=== PATIENT | male | born 1930 | race Caucasian/White ===

== ENCOUNTER 2019-06-03 12:31 | Emergency (ER) | payer OTHER ==
[~2019-06-03] VITALS: Ht 172.7 cm; Wt 65.8 kg
[~2019-06-03 12:31] MED LIST: ASPI-231 OR; ATOR10TA OR; CILO100T OR; DUTACAP OR; FERR324T4 OR; FLUT250M2 IN; GLIP5TAB12 OR; MULTTAB OR; OMEG10004 OR; OMEP20TA44 OR; SITA50TA OR; TIOTCAP IN; [UNRECOGNIZED DRUG - CODE] XX
[2019-06-03 12:56] VITALS: BP 110/63
[2019-06-03] MEDS ORDERED: HYDROcodone-ACET 5/325MG TAB PO ONE (13:45)
== END 2019-06-03 15:48 | disposition home or self-care (01) ==
LOC: ER 12:31
DX: S42.212A Unspecified displaced fracture of surgical neck of left humerus, initial encounter for closed fracture (principal); Z79.82 Long term (current) use of aspirin; Z79.899 Other long term (current) drug therapy; W19.XXXA Unspecified fall, initial encounter; Y93.89 Activity, other specified; Y92.89 Other specified places as the place of occurrence of the external cause; Y99.8 Other external cause status
CPT/HCPCS: 71045; 73030

== ENCOUNTER 2019-06-28 15:07 | Inpatient (IN) | payer OTHER ==
[~2019-06-28] VITALS: Ht 175.3 cm; Wt 64.4 kg
[~2019-06-28 15:07] MED LIST changes: +MULT-733 OR; -MULTTAB OR
[2019-06-28] MEDS ORDERED: SODIUM CHLORIDE 0.9% 1,000 ML IV ONE ×5 (15:21→19:15)
[2019-06-28 15:42] LABS: Basophils # (auto) 0 10 ^3/uL (0-0.2); Basophils % (auto) 0.2 % (0.0-2.0); Eosinophils # (auto) 0 10 ^3/uL (0-0.8)
[2019-06-28 15:44] LABS: Hemoglobin 10.2 g/dL (13.5-17.5); Lymphocytes # (auto) 0.3 10 ^3/uL (0.4-5.4); Monocytes % (auto) 6.1 % (0.0-12.0); Neutrophils # (auto) 14.5 10 ^3/uL (1.6-8.6); Neutrophils % (auto) 91.7 % (37.0-80.0); Platelet Count (auto) 111 10^3/uL (140-450); Red Blood Cells 2.83 10^6/uL (4.5-5.90); Red Cell Distribution Width 16.3 % (11.8-14.3); White Blood Cell 15.8 10^3/uL (4.4-10.8)
[2019-06-28 15:45] LABS: Albumin 2.4 g/dL (3.4-5.0); Calcium 8.6 mg/dL (8.5-10.1); Potassium 5.3 mmol/L (3.5-5.1)
[2019-06-28 15:50] LABS: BUN/Creatinine Ratio 22.8; Bilirubin, Total 1.1 mg/dL (0.2-1.0); Total Protein 7.3 g/dL (6.4-8.2)
[2019-06-28 15:59] LABS: INR 1.05 (0.9-1.15); Lactic Acid w/Reflex 3.3 mmol/L (0.4-2.0); Partial Thromboplastin Time 31.9 sec (23.64-32.05)
[2019-06-28] MEDS ORDERED: ALBUTEROL SULF 2.5 MG/0.5ML(0.5%) NEB SOLN NEB ONE (16:15)
[2019-06-28] MEDS ORDERED: SODIUM BICARBONATE 8.4% INJ 50ML SYRINGE IV ONE (16:15)
[2019-06-28] MEDS ORDERED: DEXTROSE (50%) 50ML SYRG IV ONE (16:15)
[2019-06-28] MEDS ORDERED: CALCIUM GLUC 4.65meq/50ml D5AE 50 ML IV ONE (16:15)
[2019-06-28] MEDS ORDERED: SODIUM ZIRCONIUM CYCL 10 GM PAK PO ONE (16:15)
[2019-06-28] MEDS ORDERED: InsuLIN REG 1unit/0.01ml Soln (100units/ml) IV ONE (16:15)
[2019-06-28] MEDS ORDERED: cefTRIAXone 1GM/50ML D5W 50 ML IV ONE ×2 (16:15→17:00)
[2019-06-28] MEDS ORDERED: ENOXAPARIN SOD 80 MG/0.8ML SYRINGE SC ONE (16:15)
[2019-06-28] MEDS ORDERED: NOREPINEPHRINE 8 MG/250ML KIT 250 ML IV ONE (16:42)
[2019-06-28] MEDS ORDERED: SODIUM CHLORIDE 0.9% 1,000 ML IV SCH (16:49)
[2019-06-28] MEDS: InsuLIN REG 1unit/0.01ml Soln (100units/ml) SC SCH ×2 (17:00→22:27)
[2019-06-28] MEDS ORDERED: DEXTROSE (50%) 50ML SYRG IV PRN (17:00)
[2019-06-28] MEDS ORDERED: ONDANSETRON HCL 4 MG/2 ML VIAL IV PRN (17:00)
[2019-06-28] MEDS ORDERED: MORPHINE SULF INJ 2 MG/ML SYRINGE 1ML IV PRN (17:00)
[2019-06-28] MEDS ORDERED: ALBUTEROL SULF 2.5 MG/0.5ML(0.5%) NEB SOLN NEB PRN (17:00)
[2019-06-28] MEDS ORDERED: NITROGLYCERIN 0.4 MG SL TAB SL PRN (17:00)
[2019-06-28] MEDS: NOREPINEPHRINE 8 MG/250ML KIT 250 ML IV SCH (17:04)
[2019-06-28] MEDS ORDERED: SODIUM CHLORIDE 0.9% 2,000 ML IV ONE (17:15)
[2019-06-28] MEDS ORDERED: SODIUM BICARB 50ML SYR 75 ML in SOD CHL 0.45% 1,000 ML IV SCH (17:30)
[2019-06-28 17:48] LABS: Amylase 45 U/L (25-115); Lipase 132 U/L (73-393)
[2019-06-28] MEDS: SODIUM BICARBONATE 50ML VIAL 75 ML in SOD CHL 0.45% 1,000 ML IV SCH (17:56)
[2019-06-28] MEDS: ALBUTEROL SULF 2.5 MG/0.5ML(0.5%) NEB SOLN NEB SCH (18:07)
[2019-06-28] MEDS: IPRATROPIUM BROM 0.5 MG/2.5ML INH SOL NEB SCH (18:07)
[2019-06-28] MEDS: ACCU-CHEK COMFORT CURVE STRIP VI SCH ×2 (18:26→22:24)
[2019-06-28 18:29] VITALS: BP 123/50
[2019-06-28 18:40] LABS: Urine Bacteria MOD /hpf (None Seen); Urine Blood 3+ /uL (Negative); Urine WBC 1179 /hpf (0 - 3); Urine WBC Clumps PRESENT /hpf (None Seen)
[2019-06-28 19:42] LABS: BUN/Creatinine Ratio 23.9; Potassium 3.9 mmol/L (3.5-5.1)
--- NOTE | 2019-06-28 20:00 | NUR ---
Pt being admitted to ICU THEAPARTHA CANCHOLA admitted to ICU via geetha on real estate marketing coordinator, and portable 02. Patient transfered to bed, connected to ICU monitoring and oxygen, and weighed by bedscale. Currently on 3 LO2 via NC; pain with turning; bedrest. Bed locked in lowest position, side rails up x3, call light within reach, bed alarm on for patient safety, and COVID r/o respiratory/contact isolation precautions in place. 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 Right TLC IJ inserted on 06/28/19 running Levophed at 6 mcg and Bicarb at 100 ml/hr. Skin: multiple issues, see charting. Pictures taken. Patient oriented to BAL WOODRUFF, primary RN, unit, room, bed, and unit policies regarding patient care and visiting hours. All questions and concerns addressed.
[2019-06-28 20:30] VITALS: BP 121/54
[2019-06-28 21:00] VITALS: BP 101/35
--- NOTE | 2019-06-28 21:00 | NUR ---
MRSA culture, strep swab, and COVID specimen sent to lab.
[2019-06-28 22:00] VITALS: BP 81/27
[2019-06-28 22:30] VITALS: BP 95/36
[2019-06-28 23:00] VITALS: BP 95/33
[2019-06-29] VITALS (73 sets, daily range): BP systolic 85–127; BP diastolic 32–62
[2019-06-29] MEDS: ALBUTEROL SULF 2.5 MG/0.5ML(0.5%) NEB SOLN NEB SCH ×4 (00:10→18:46)
[2019-06-29] MEDS: IPRATROPIUM BROM 0.5 MG/2.5ML INH SOL NEB SCH ×4 (00:10→18:46)
[2019-06-29] MEDS ORDERED: SODIUM BICARBONATE 8.4% INJ 50ML SYRINGE ONE (04:13)
--- NOTE | 2019-06-29 04:20 | NUR ---
Patient removal of central line: Patient had mittens on to preserve integrity of central line and suprapubic catheter. Patient managed to remove mittens and remove right IJ TLC. Catheter was removed fully intact and dressing applied. New IV 22 g in right AC inserted x1 attempt. 18 g in left forearm inserted in ER. Restarted Levophed and sodium bicarb.
[2019-06-29] MEDS: SODIUM BICARBONATE 50ML VIAL 75 ML in SOD CHL 0.45% 1,000 ML IV SCH ×3 (04:30→17:37)
--- NOTE | 2019-06-29 04:30 | NUR ---
Patient bathe/linen change Patient given complete CHG bath. Skin integrity assessed for any changes. Linens and changed. Patient repositioned for comfort.
--- NOTE | 2019-06-29 05:08 | NUR ---
Positive blood cultures: Per lab, patient's preliminary blood cultures are positive: gram negative rods. Page sent to batch or continuous still operator hospitalist for possible new orders. Currently, patient is Azithromycin 500mg/250ml daily and Ceftriaxone 1GM/50ml daily.
--- NOTE | 2019-06-29 05:40 | NUR ---
Page return: No new orders received in regards to positive blood cultures at this time.
[2019-06-29 05:48] LABS: Basophils # (auto) 0 10 ^3/uL (0-0.2); Eosinophils # (auto) 0 10 ^3/uL (0-0.8); Eosinophils % (auto) 0.3 % (0.0-7.0); Lymphocytes # (auto) 0.5 10 ^3/uL (0.4-5.4); Mean Corpuscular Volume 104.1 fL (80.0-100.0); Neutrophils # (auto) 6.5 10 ^3/uL (1.6-8.6); Red Cell Distribution Width 16.2 % (11.8-14.3); White Blood Cell 7.6 10^3/uL (4.4-10.8)
[2019-06-29 05:50] LABS: Basophils % (auto) 0.2 % (0.0-2.0); Hematocrit 23.9 % (41.0-53.0); Hemoglobin 8.5 g/dL (13.5-17.5); Lymphocytes % (auto) 6.6 % (10.0-50.0); Mean Corpuscular Hemoglobin 36.9 pg (28.0-32.0); Mean Corpuscular Hgb Conc. 35.4 g/dL (32.0-36.0); Monocytes # (auto) 0.5 10 ^3/uL (0-1.3); Monocytes % (auto) 7.2 % (0.0-12.0); Neutrophils % (auto) 85.7 % (37.0-80.0); Platelet Count (auto) 137 10^3/uL (140-450)
[2019-06-29 06:11] LABS: Albumin 1.8 g/dL (3.4-5.0); Calcium 7.4 mg/dL (8.5-10.1); Potassium 5.2 mmol/L (3.5-5.1)
--- NOTE | 2019-06-29 06:45 | NUR ---
High potassium: Patient's potassium is 5.2. personal computer network engineer paged.
[2019-06-29] MEDS: InsuLIN REG 1unit/0.01ml Soln (100units/ml) SC SCH ×4 (07:00→21:25)
[2019-06-29] MEDS: ACCU-CHEK COMFORT CURVE STRIP VI SCH ×4 (07:00→21:25)
[2019-06-29] MEDS ORDERED: DEXTROSE (50%) 50ML SYRG IV ONE (07:00)
[2019-06-29] MEDS ORDERED: InsuLIN REG 1unit/0.01ml Soln (100units/ml) IV ONE (07:00)
[2019-06-29] MEDS ORDERED: SODIUM ZIRCONIUM CYCL 10 GM PAK PO ONE ×2 (07:00→10:15)
--- NOTE | 2019-06-29 07:00 | NUR ---
Page return: New orders for high potassium: 20 g lokelma, 10 units of insulin iv, and amp of D50. Pharmacy called to inform me that the max dose of lokelma is 15 g. Endorsed to day shift nurse to confirm order with attending physician or nephrology.
--- NOTE | 2019-06-29 09:00 | NUR ---
NUTRITION PATIENT ATE 35% OF BREAKFAST. PATIENT ASSISTED LEFT HAND NOTED TO BE WEAK AND SHAKING. PATIENT SWALLOWED FOOD WITHOUT DIFFICULTY AND TOLERATED THIN LIQUIDS. ASPIRATION PRECAUTIONS IN PLACE.
[2019-06-29] MEDS: ENOXAPARIN SOD 30 MG/0.3 ML SYRINGE SC SCH (10:00)
--- NOTE | 2019-06-29 10:03 | NUR ---
Family updated on pt status Family of MILINDPARTHA updated on patient's status and condition by NICK Jane. All questions and concerns addressed. Raiza verbalized understanding.
--- NOTE | 2019-06-29 10:03 | NUR ---
CLOTH BOOKER ROUNDS P UPDATED PATIENT ON STATUS AT BEDSIDE. QUESTIONS AND CONCERNS ADDRESSED. SEE NEW ORDERS. Addendum: 06/29/19 at 1856 by Katalina Joshi RN BECCA ORDER VERIFIED.
[2019-06-29] MEDS: PANTOPRAZOLE 40 MG TAB PO SCH (10:08)
--- NOTE | 2019-06-29 11:00 | NUR ---
SAFETY PATIENT NOTED TO FIDGET WITH PULSE OX. FREQUENT REMINDING NEEDED BY SITTER AT BEDSIDE. PATIENT ALSO NOTED TO REACH DOWN TO PELVIC AREA NOTED BY SITTER. SITTER REMAINS AT BEDSIDE TO PREVENT PULLING AT SUPRAPUBIC. BED IN LOWEST POSITION. CALL LIGHT AT REACH.
--- NOTE | 2019-06-29 12:00 | NUR ---
NEGATIVE COVID RESULTS.
--- NOTE | 2019-06-29 12:08 | NUR ---
WOUND CARE NOTE: Wound care in to see patient per wound care request regarding wounds that are noted present on admission. Bedside nurse took photograph of patient's wounds upon admission for reference. Patient is 88 years old male with admitting diagnosis of Acute Renal Failure, Recurrent Falls. Patient is resting in ICU bed in Rm. 112. Patient is awake, alert and able to verbalize needs. He's in no stated pain at this time and he appears to be in no pain using [place] Bear Faces Pain Scale. He needs assistance in turning and repositioning and his Fahad score is 13. Skin/wound assessment done with the assistance of patient's nurse, ARIANNA Austin. Patient's Rt knee noted with dry abrasion, staff covered with protective foam dressing. His Rt lateral elbow noted with 4.5x3.5cm open full thickness skin tear with missing skin flap. Wound is red with purple ecchymotic estefany wound. Minimal serosanguineous drainage noted on old dressing, no odor noted. Cleansed R elbow wound with wound cleanser, patted dry with gauze, applied Thera honey gel, covered with Telfa, wrapped with Kerlix and secured with tape. Patient's distal sacrum and lower buttocks noted with blanchable redness. His medial lower back noted with 1x3.5cm dark maroon, soft non-blanchable DTI. Estefany care given,applied Z Guard cream to sacral, buttocks. Covered lower back wound with Opti foam gentle dressing. Patient tolerated well, repositioned patient for comfort facing his Lt side, redistributed pressure points with pillows. Bed in low position with all safety precautions in placed. RECOMMENDATION: Nursing to continue with dressing changes to multiple wounds per MD order, Dietary consult, frequent turning and repositioning as condition permits, redistribute pressure points with pillows, elevate heels on pillows, continue monitoring by wound care while patient is hospitalized. Addendum: 06/29/19 at 1620 by Bertha Garcia RN Amended: Links added.
--- NOTE | 2019-06-29 12:30 | NUR ---
NUTRITION PATIENT TOLERATED LUNCH TRAY WITH MODERATE ASSISTANCE. NO DIFFICULTY NOTED. SITTER REMAINS AT BEDSIDE FOR SAFETY.
--- NOTE | 2019-06-29 12:31 | NUR ---
Family updated on pt status Family of PARTHA VAZ updated on patient's status and condition. All questions and concerns addressed. Daughter Evelyn verbalized understanding.
--- NOTE | 2019-06-29 12:45 | NUR ---
SPOKE TO PATIENT VIA PORTABLE PHONE REQUESTED.
[2019-06-29] MEDS: ACETAMINOPHEN 500 MG TAB PO PRN ×2 (12:47→18:23)
--- NOTE | 2019-06-29 13:01 | NUR ---
Nutrition Assessment Notes Please refer to link for full assessment notes. Est Energy needs: 4536-1909 kcals (30-35 kcal/kgBW) d/t acute Renal failure Est Protein needs: 36-58 gms/day (0.5-0.8 gm/kgBW) d/t acute Renal failure Will continue to monitor and reassess prn. Addendum: 06/29/19 at [address] Amended: Links added.
[2019-06-29 13:34] LABS: BUN/Creatinine Ratio 23.7; Calcium 7.7 mg/dL (8.5-10.1); Potassium 3.8 mmol/L (3.5-5.1)
--- NOTE | 2019-06-29 14:00 | NUR ---
IV: IV TO LEFT HAND 20G OBTAINED AFTER 2ND ATTEMPT. PT TOLERATED WELL. LEVOPHED INFUSING TO HAND. WILL MONITOR CLOSELY FOR ANY S/S OF INFILTRATE. PICC LINE HELD UNTIL A.M. IF NEEDED.
[2019-06-29] MEDS: cefTRIAXone 1GM/50ML D5W 50 ML IV SCH (15:43)
--- NOTE | 2019-06-29 15:45 | NUR ---
APPLICATION SECURITY SPECIALIST AT BEDSIDE. MD UPDATED ON PATIENTS STATUS. SEE NEW ORDERS.
[2019-06-29] MEDS: AZITHROMYCIN 500MG/ 250ML 250 ML IV SCH (16:19)
[2019-06-29] MEDS: NOREPINEPHRINE 8 MG/250ML KIT 250 ML IV SCH (17:37)
--- NOTE | 2019-06-29 19:30 | NUR ---
Opening Shift Note: A&Ox2-3, confusion present. Currently on 4LO2 via NC, unknown if patient wears at home; bedrest, patient states he uses a wheelchair at baseline; and pain level 8/10 right headache per patient. Bed locked in lowest position, side rails up x3, call light within reach, bed alarm on for patient safety, and sitter present at bedside. 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 Suprapubic catheter placed in ER for retention/obstruction: garcia in color with clots present. Skin: multiple wounds see charting. IVs: left hand 20 g running Levophed at 4 mcg inserted on 06/29/19 and IV right AC 20 g running sodium bicarb @ 75 ml/hr inserted on 06/29/19. POC discussed with patient but reinforcement needed. Will continue to round and reposition prn.
[2019-06-29] MEDS: traMADol HCL 50 MG TAB PO PRN (20:04)
[2019-06-30] VITALS (88 sets, daily range): BP systolic 82–138; BP diastolic 33–70
[2019-06-30] MEDS: ALBUTEROL SULF 2.5 MG/0.5ML(0.5%) NEB SOLN NEB SCH ×4 (00:13→19:31)
[2019-06-30] MEDS: IPRATROPIUM BROM 0.5 MG/2.5ML INH SOL NEB SCH ×4 (00:13→19:31)
--- NOTE | 2019-06-30 03:30 | NUR ---
Refusal of bath and linen change at this time. Will attempt again later.
[2019-06-30 04:13] LABS: Basophils # (auto) 0 10 ^3/uL (0-0.2); Basophils % (auto) 0.2 % (0.0-2.0); Eosinophils # (auto) 0.1 10 ^3/uL (0-0.8); Hematocrit 24.8 % (41.0-53.0); Hemoglobin 8.3 g/dL (13.5-17.5); Lymphocytes # (auto) 0.9 10 ^3/uL (0.4-5.4); Lymphocytes % (auto) 9.7 % (10.0-50.0); Mean Corpuscular Hemoglobin 35.4 pg (28.0-32.0); Mean Corpuscular Hgb Conc. 33.6 g/dL (32.0-36.0); Mean Corpuscular Volume 105.3 fL (80.0-100.0); Monocytes # (auto) 0.9 10 ^3/uL (0-1.3); Monocytes % (auto) 9.4 % (0.0-12.0); Neutrophils # (auto) 7.3 10 ^3/uL (1.6-8.6); Neutrophils % (auto) 79.7 % (37.0-80.0); Nucleated Red Blood Cells % 0.1 %; Platelet Count (auto) 127 10^3/uL (140-450); Red Blood Cells 2.36 10^6/uL (4.5-5.90); Red Cell Distribution Width 16.5 % (11.8-14.3); White Blood Cell 9.2 10^3/uL (4.4-10.8)
[2019-06-30 04:32] LABS: BUN/Creatinine Ratio 25.4; Calcium 7.5 mg/dL (8.5-10.1); Potassium 3.8 mmol/L (3.5-5.1)
--- NOTE | 2019-06-30 05:00 | NUR ---
Again, refusal of linen or gown change/bed bath at this time.
--- NOTE | 2019-06-30 06:25 | NUR ---
Patient bathe/linen change Patient given complete CHG bath. Skin integrity assessed for any changes. Linens and gown changed. Patient repositioned for comfort.
[2019-06-30] MEDS: SODIUM BICARBONATE 50ML VIAL 75 ML in SOD CHL 0.45% 1,000 ML IV SCH (06:27)
[2019-06-30] MEDS: InsuLIN REG 1unit/0.01ml Soln (100units/ml) SC SCH ×4 (06:28→22:00)
[2019-06-30] MEDS: ACETAMINOPHEN 500 MG TAB PO PRN ×2 (06:38→16:02)
[2019-06-30] MEDS: ACCU-CHEK COMFORT CURVE STRIP VI SCH ×4 (06:38→21:50)
--- NOTE | 2019-06-30 07:45 | NUR ---
SAFETY PATIENT NEEDING FREQUENT REMINDING HE ATTEMPTS TO PULL AT IV LINES, PLAN MANAGER AND PULSE OX. SITTER AT BEDSIDE FOR SAFETY. BED IN LOWEST POSITION. CALL LIGHT AT REACH.
--- NOTE | 2019-06-30 08:00 | NUR ---
Cooling Measures applied. Patient currently has temp of 99.0 , cooling measures in place.
--- NOTE | 2019-06-30 09:15 | NUR ---
Family updated on pt status Family of PARTHA VAZ called, portable phone provided to patient at bedside.
--- NOTE | 2019-06-30 09:30 | NUR ---
Family updated on pt status Family of PARTHA VAZ updated on patient's status and condition. All questions and concerns addressed. Kenrick Rivas verbalized understanding. Portable phone given to patient.
[2019-06-30] MEDS: ENOXAPARIN SOD 30 MG/0.3 ML SYRINGE SC SCH (09:54)
[2019-06-30] MEDS: AZITHROMYCIN 500MG/ 250ML 250 ML IV SCH (10:00)
[2019-06-30] MEDS: PANTOPRAZOLE 40 MG TAB PO SCH (10:00)
[2019-06-30] MEDS: cefTRIAXone 1GM/50ML D5W 50 ML IV SCH (10:00)
[2019-06-30] MEDS: NOREPINEPHRINE 8 MG/250ML KIT 250 ML IV SCH (10:10)
--- NOTE | 2019-06-30 11:03 | NUR ---
INCENTIVE SPIROMETER PATIENT ENCOURAGED TO USE I.S PATIENT, REASONING PROVIDED. PATIENT ABLE TO REACH 1500ML DURING INSPIRATION. FREQUENT REMINDING NEEDED.
--- NOTE | 2019-06-30 11:30 | NUR ---
AT BEDSIDE DR. DUMONT UPDATED ON PATIENTS STATUS. NEW ORDERS IN PLACE.
[2019-06-30] MEDS: traMADol HCL 50 MG TAB PO PRN (11:36)
--- NOTE | 2019-06-30 12:00 | NUR ---
IV TO LEFT HAND NOTED SLIGHTLY MOIST. IV FLUSHED WITH NO RESISTANCE, BLOOD RETURN NOTED. SURROUNDING TISSUE ASYMPTOMATIC. NO COMPLAINS OF PAIN. LEVOPHED CHANGED TO RIGHT RIGHT AC 22G . FLUIDS STOPPED AT THIS TIME. MOTOR VEHICLES INSPECTOR AWARE OF IV PENDING.
--- NOTE | 2019-06-30 13:03 | NUR ---
DR. GALLO AT BEDSIDE. MD UPDATED ON PATIENT STATUS. MD AWARE LOVENOX WAS HELD AT THIS TIME DUE TO HEMATURIA. MD GIVEN FAMILY CONTACT FOR AN UPDATE. SEE MD NOTES.
--- NOTE | 2019-06-30 14:19 | NUR ---
PICC LINE NURSE AT BEDSIDE.
--- NOTE | 2019-06-30 14:54 | NUR ---
PICC line placement Patient/Patient significant other educated on need for PICC line placement. All risks and benefits explained and all questions and concerns addressed prior to procedure. Noted past medical history and allergies with no contraindications. INR and Plt counts within acceptable range. 5 fr PICC line inserted via right basilic vein using [employer] US and Tip Location System. Sterile technique with maximum barrier precautions utilized. Blood return obtained from each of the 3 lumens and each flushed easily with NS using proper technique. PICC secured with Stat-lock; biodisc and occlusive dressing applied. Stat portable chest x-ray obtained for PICC tip placement. *Baseline Arm Circumference 24cm. Internal length 41 cm. External length 0 cm. PICC lot #[id number]
[2019-06-30] MEDS ORDERED: LIDOCAINE 1% (LOCAL ANESTH.) PF 5ml SDV ID ONE (15:00)
--- NOTE | 2019-06-30 15:00 | NUR ---
SUPRAPUBIC CATHETER DRESSING CHANGE DONE VIA STERILE TECHNIQUE. AREA CLEANSED WITH CHLORAPREP SWAB. BIOPATCH TO SITE. NO ERYTHEMA NOTED, SKIN INTACT, CATHETER SECURED WITH TEGADERM AND TAPE. PT TOLERATED WELL. RUTH CONTINUES TO CLOUDY, STRAW COLORED URINE WITH SMALL CLOTS.
--- NOTE | 2019-06-30 15:03 | NUR ---
Okay to use PICC line Xray completed and reviewed. Okay to use PICC line. Primary RN notified.
[2019-06-30] MEDS: SODIUM CHLORIDE 0.9% 1,000 ML IV SCH (15:57)
--- NOTE | 2019-06-30 18:46 | NUR ---
NUTRITION PATIENT ATE 100% OF BREAKFAST. STANDBY ASSISTANCE PROVIDED BY SITTER AT BEDSIDE. NO DIFFICULTY NOTED. Addendum: 06/30/19 at 1846 by Katalina Joshi RN TIME CHANGE TO 0900
--- NOTE | 2019-06-30 20:00 | NUR ---
ADMITTED WITH DIAGNOSIS OF BILATERAL PNA, NSTEMI, POST FALL AT HOME, WEAKNESS, AND URETHRAL STRICTURE. SUPRAPUBIC CATHETER PLACED IN ER BY DR MCGHEE. RULED OUT FOR COVID, STREP AND INFLUENZA. ELEVATED LIVER ENZYMES ARE RESOLVING. DR GALLO INVOLVED FOR A POSSIBLE FUTURE LITHROTRYPSY PROCEDURE FOR RIGHT RENAL STONE. + MRSA NARES ON THIS ADMISSION. BACTROBAN TREATMENT IN PROCESS. CACHECTIC. + URINE CULTURE. + BLOOD CULTURE. LOW SODIUM RESOLVING. HYPERKALEMIA RESOLVED. CREATININE SLOWLY COMING DOWN AND IS STILL ELEVATED. HOLDING LOVENOX FOR HEMATURIA. + DDIMER. MAINTENANCE IV AND LEVOPHED KEEPING SYSTOLIC AROUND 100. SITTER IN ROOM. PATIENT IS ACTIVE AND WON'T KEEP FROM PLAYING WITH LINES. PULLED OUT CENTRAL LINE A FEW NIGHTS AGO .HAS A NEW PICC LINE TODAY. RIGHT ELBOW SKIN TEAR DRESSING REMOVED. SMALL AMOUNT OF SEROUS DRNG. ON DRESSING. CLEANED WOUND WITH WOUND SPRAY AND REAPPLIED A FOAM DRESSING. ABRASION ON RIGHT KNEE. DRESSING REMOVED AND CLEANED IT WITH WOUND CLEANSER. REDRESSED WITH A FOAM DRESSING. THE PREVIOUS DRESSING HAD A SMALL AMOUNT OF SEROUS DRNG ON IT. SACRAL DTI STABLE. SCDS ON. PICC LINE DRESSING HAD A BLOOD SATURATED BIODISK. REMOVED DRESSING. CLEANED THE SITE WITH CHLOROPREP AND REDRESSED IT. SUPRAPUBIC DRESSING CLEAN AND DRY. EXERCISED ALL EXTREMITIES. NOTED LEFT HIP AND LEFT SHOULDER PAIN. ALL PULSES PALPABLE AND TEMP IS NORMAL.
[2019-06-30] MEDS: SODIUM CHLOR 0.9% PF (SALINE LOCK) 10ML VIAL/SYR IV SCH (22:00)
[2019-06-30] MEDS: MUPIROCIN 2% OINT 15gm or 22gm EACHNOSTRI SCH (22:00)
--- NOTE | 2019-06-30 22:00 | NUR ---
APPLIED A WARM BLANKET . REPOSITIONED AND REORIENTED HIM. SITTER IN ROOM. HE FREQUENTLY STATES THAT HE NEEDS TO URINATE. HIS HANDS GO FISHING BELOW THE SHEETS. WE TRY TO KEEP THEM ABOVE AND REMIND HIM THAT HE HAS A CATHETER IN PLACE AND IT IS WORKING. PICC LINE DRESSING DRY. NSR WITHOUT ECTOPY. URINE HAS A HINT OF BLOOD IN IT. UNABLE TO WEAN OFF THE LEVOPHED.
[2019-07-01] VITALS (90 sets, daily range): BP systolic 75–142; BP diastolic 32–88
--- NOTE | 2019-07-01 | NUR ---
HE CONTINUES TO HAVE MOMENTS WHEN HE SPONTANEOUSLY TRIES TAKING HIS GOWN OFF OR WANTS TO GO UNDER THE COVERS TO FIND SOMETHING. HE DOESN'T UNDERSTAND THE SUPRAPUBIC OR THAT HIS TUBES ARE IMPORTANT ENOUGH TO BE LEFT WHERE THEY ARE. NSR WITHOUT ECTOPY . FIRST DEGREE AV BLOCK. PICC LINE DRESSING CLEAN AND DRY.
[2019-07-01] MEDS: IPRATROPIUM BROM 0.5 MG/2.5ML INH SOL NEB SCH ×4 (00:33→18:22)
[2019-07-01] MEDS: ALBUTEROL SULF 2.5 MG/0.5ML(0.5%) NEB SOLN NEB SCH ×4 (00:34→18:22)
[2019-07-01] MEDS: ACETAMINOPHEN 500 MG TAB PO PRN ×2 (02:11→09:58)
[2019-07-01] MEDS: SODIUM CHLORIDE 0.9% 1,000 ML IV SCH ×2 (03:17→18:53)
--- NOTE | 2019-07-01 04:00 | NUR ---
STATES HE FEELS LIKE HE NEEDS TO VOID ALL THE TIME. EXPLAINED HIS SITUATION TO HIM. DRINKING COFFEE. WATCHING TV.
[2019-07-01] MEDS: ACCU-CHEK COMFORT CURVE STRIP VI SCH ×4 (05:57→22:11)
--- NOTE | 2019-07-01 06:00 | NUR ---
AM LABS SENT
[2019-07-01] MEDS: InsuLIN REG 1unit/0.01ml Soln (100units/ml) SC SCH ×4 (06:09→22:21)
[2019-07-01] MEDS: NOREPINEPHRINE 8 MG/250ML KIT 250 ML IV SCH (06:40)
[2019-07-01 06:45] LABS: Hematocrit 22.1 % (41.0-53.0); Hemoglobin 7.3 g/dL (13.5-17.5); Mean Corpuscular Hemoglobin 34.9 pg (28.0-32.0); Mean Corpuscular Hgb Conc. 33.3 g/dL (32.0-36.0); Mean Corpuscular Volume 104.9 fL (80.0-100.0); Platelet Count (auto) 163 10^3/uL (140-450); Red Cell Distribution Width 16.2 % (11.8-14.3)
[2019-07-01 06:48] LABS: Basophils % (manual) 0 (0.0-2.0); Blast Cells 0; Eosinophils % (manual) 0 (0-7); Myelocytes % 0; Promyelocytes % 0; Reactive Lymphocytes 0
[2019-07-01 06:51] LABS: BUN/Creatinine Ratio 25.7; Calcium 7.5 mg/dL (8.5-10.1); Potassium 4.1 mmol/L (3.5-5.1)
[2019-07-01 07:29] LABS: Band Neutrophils % (manual) 7; Lymphocytes % (manual) 15 (10.0-50.0); Metamyelocytes % 1; Monocytes % (manual) 8 (0-12)
--- NOTE | 2019-07-01 07:44 | NUR ---
DR Regino DUMONT AT BEDSIDE DISCUSSED PATIENTS STATUS, NEW ORDERS RECEIVED
--- NOTE | 2019-07-01 08:09 | NUR ---
NIGHT WORKER AT BEDSIDE FOR LOWER EXTREMITIES STUDY
--- NOTE | 2019-07-01 08:15 | NUR ---
NUTRITION- BREAKFAST PATIENT ATE 75% OF PUREED DIET, TOLERATED WELL. SITTER ASSISTED PATIENT WITH EATING
[2019-07-01] MEDS: cefTRIAXone 1GM/50ML D5W 50 ML IV SCH (08:37)
--- NOTE | 2019-07-01 08:54 | NUR ---
LEFT MESSAGE FOR PATIENTS SHERWIN VAZ FOR TELEPHONE CONSENT FOR BLOOD TRANSFUSION AWAITING RETURN CALL
--- NOTE | 2019-07-01 08:59 | NUR ---
CAUSTIC PREPARER AT BEDSIDE
[2019-07-01] MEDS: AZITHROMYCIN 500MG/ 250ML 250 ML IV SCH (09:58)
[2019-07-01] MEDS: PANTOPRAZOLE 40 MG TAB PO SCH (09:58)
[2019-07-01] MEDS: ENOXAPARIN SOD 30 MG/0.3 ML SYRINGE SC SCH (10:00)
[2019-07-01] MEDS: MUPIROCIN 2% OINT 15gm or 22gm EACHNOSTRI SCH ×2 (10:09→22:10)
[2019-07-01] MEDS: SODIUM CHLOR 0.9% PF (SALINE LOCK) 10ML VIAL/SYR IV SCH ×2 (10:15→22:11)
--- NOTE | 2019-07-01 10:38 | NUR ---
LEFT 2ND MESSAGE TO OBTAIN CONSENT FOR BLOOD TRANSFUSION.
--- NOTE | 2019-07-01 10:42 | NUR ---
PATIENTS SHERWIN RETURNED CALL. OBTAINED BLOOD TRANSFUSION CONSENT. VERIFIED WITH SECOND RN.
--- NOTE | 2019-07-01 12:15 | NUR ---
PATIENT PULLED SUPRAPUBIC CATHETER. RN ENTERED ROOM AND PATIENT WAS HOLDING IN HAND. NO BLEEDING NOTED FROM SITE. WILL NOTIFY .
--- NOTE | 2019-07-01 12:18 | NUR ---
LEFT MESSAGE WITH DR GALLO'S EXCHANGE TO RETURN CALL REGARDING PATIENT PULLING SUPRAPUBIC CATHETER
--- NOTE | 2019-07-01 12:59 | NUR ---
DR ESCOBEDO AT BEDSIDE DISCUSSED PATIENTS STATUS AND PLAN OF CARE. NO NEW ORDERS AT THIS TIME
--- NOTE | 2019-07-01 13:00 | NUR ---
DR GARCIA AT BEDSIDE DISCUSSED PATIENT STATUS, INFORMED HIM PATIENT PULLED SUPRAPUBIC CATHETER, DR GARCIA RECOMMENDED CONSULTING DR GIVENS TO ATTEMPT ANOTHER PLACEMENT
--- NOTE | 2019-07-01 13:30 | NUR ---
DR FONTAINE AT BEDSIDE DISCUSSED PATIENT STATUS, NEW ORDERS RECEIVED
[2019-07-01] MEDS: HYDROCORTISONE SOD SUCC 100 MG/2ML INJ VIAL IV SCH ×2 (14:00→22:11)
--- NOTE | 2019-07-01 14:10 | NUR ---
PATIENT COMPLAINING OF ABDOMINAL DISCOMFORT AND NAUSEA. WILL MEDICATE PER MAR
--- NOTE | 2019-07-01 16:47 | NUR ---
DR MCGHEE AT BEDSIDE, PLACED SUPRAPUBIC CATHETER USING ULTRASOUND. SUTURES IN PLACE. PINK URINE WITH SEDIMENT DRAINED. PATIENT TOLERATED FAIR
--- NOTE | 2019-07-01 20:00 | NUR ---
ADMITTED WITH WEAKNESS, HAD FALLEN 4X AT HOME. 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 RIGHT SHOULDER, LEFT HIP PAIN. RIGHT ELBOW SKIN TEAR. OFF LEVOPHED AT 1500. MAINTENANCE FLUID AT 75CC/HR. PLAN: VQ SCAN TOMORROW. HAD ONE UPC TODAY FOR A HG OF 7.3. BLOOD CULTURES REPEATED TODAY. STARTED ON SOLUCORTEF. LOWER EXTREMITY US SHOWS A NEGATIVE DVT. D DIMER POSITIVE. SPOKE TO HIM, SLIGHTLY CONFUSED. SLIGHTLY HARD OF HEARING.
--- NOTE | 2019-07-01 22:00 | NUR ---
C/O OF STOMACH PAIN. TRAMADOL GIVEN WITH MILK. REPOSITIONED. ORAL CARE. INSULIN REPLACEMENT GIVEN. REMAINS OFF OF LEVOPHED. IV SITE SHOWS NO REDNESS OR SWOLLEN.
[2019-07-01] MEDS: traMADol HCL 50 MG TAB PO PRN (22:11)
[2019-07-01] MEDS ORDERED: traMADol HCL 50 MG TAB ONE (22:29)
[2019-07-02] VITALS (42 sets, daily range): BP systolic 96–144; BP diastolic 43–78
--- NOTE | 2019-07-02 | NUR ---
SITTING IN BED WITH LEGS CROSSED IN THE AIR, NO SHEET ON. SINUS TACHYCARDIA WITHOUT ECTOPY. IV PICC LINE DRESSING CLEAN, DRY AND CURRENT. 2L CARD SERVICES SPECIALIST. LUNGS CLEAR. ABDOMEN: SUPRAPUBIC SUTURED, DRESSING CLEAN AND DRY.
[2019-07-02] MEDS: IPRATROPIUM BROM 0.5 MG/2.5ML INH SOL NEB SCH ×4 (00:28→19:27)
[2019-07-02] MEDS: ALBUTEROL SULF 2.5 MG/0.5ML(0.5%) NEB SOLN NEB SCH ×4 (00:28→19:27)
--- NOTE | 2019-07-02 02:00 | NUR ---
WAKES UP AND FIDGETS WITH TUBINGS. SITTER IN ROOM. SINUS TACHYCARDIA. NO ECTOPY. PICC SITE DRESSING IS CLEAN. SITE SHOWS NO REDNESS OR SWELLING.
--- NOTE | 2019-07-02 02:24 | NUR ---
G BATH IN PROCESS. PATIENT DID VOID ONTO THE BED PAD FROM HIS PENIS.
[2019-07-02] MEDS: ACETAMINOPHEN 500 MG TAB PO PRN (03:01)
--- NOTE | 2019-07-02 04:00 | NUR ---
PATIENT RESTING QUIETLY. WAKES UP OFF AND ON AND FIDGETS ON HIS LINES. SINUS TACHYCARDIA WITHOUT ECTOPY. AT 0300, CHANGED TUBINGS AND IV BAGS.
--- NOTE | 2019-07-02 06:00 | NUR ---
VSS. STILL FIDGETS AND PULLS ON THINGS.
[2019-07-02] MEDS: HYDROCORTISONE SOD SUCC 100 MG/2ML INJ VIAL IV SCH ×3 (06:11→22:00)
[2019-07-02 06:19] LABS: Hematocrit 25.5 % (41.0-53.0); Hemoglobin 8.7 g/dL (13.5-17.5); Mean Corpuscular Hgb Conc. 34.2 g/dL (32.0-36.0)
[2019-07-02] MEDS: InsuLIN REG 1unit/0.01ml Soln (100units/ml) SC SCH ×4 (06:20→22:00)
[2019-07-02 06:23] LABS: Mean Corpuscular Hemoglobin 35.3 pg (28.0-32.0); Mean Corpuscular Volume 103.3 fL (80.0-100.0); Platelet Count (auto) 165 10^3/uL (140-450); Red Blood Cells 2.47 10^6/uL (4.5-5.90); Red Cell Distribution Width 17.1 % (11.8-14.3); White Blood Cell 7.6 10^3/uL (4.4-10.8)
[2019-07-02] MEDS: ACCU-CHEK COMFORT CURVE STRIP VI SCH ×4 (06:25→22:00)
--- NOTE | 2019-07-02 06:32 | NUR ---
LOSING SITTER TO ANOTHER SITUATION. BILATERAL MITTENS APPLIED. INFORMED PATIENT TO KEEP HIS MITTENS ON.
[2019-07-02 06:47] LABS: Albumin 1.6 g/dL (3.4-5.0); Calcium 7.6 mg/dL (8.5-10.1); Potassium 4.8 mmol/L (3.5-5.1)
[2019-07-02 06:51] LABS: BUN/Creatinine Ratio 20.3; Bilirubin, Total 0.6 mg/dL (0.2-1.0); Total Protein 5.5 g/dL (6.4-8.2)
[2019-07-02] MEDS: SODIUM CHLORIDE 0.9% 1,000 ML IV SCH ×2 (06:52→20:02)
[2019-07-02 06:54] LABS: Basophils % (manual) 0 (0.0-2.0); Blast Cells 0; Eosinophils % (manual) 0 (0-7); Promyelocytes % 0; Reactive Lymphocytes 0
[2019-07-02 07:06] LABS: Band Neutrophils % (manual) 2; Lymphocytes % (manual) 3 (10.0-50.0); Metamyelocytes % 1; Monocytes % (manual) 4 (0-12); Myelocytes % 1
--- NOTE | 2019-07-02 08:00 | NUR ---
AM ASSESSMENT COMPLETED AWAKE ALERT ORIENTED TO SELF ONLY. PT CONSTANTLY ATTEMPTING TO PULL OFF MITTENS AND PULL ON SUPRAPUBIC CATHETER AND ON IV'S WHICH HE HAS PULLED OUT BEFORE. PT HAD A SITTER ON PREVIOUS SHIFT, AM REPORT WAS TAKEN AT BED SIDE. PT AWAITING TO BE DOWNGRADED TO TELEMETRY STATUS, HE HAS BEEN OF LEVOPHED SINCE YESTERDAY AT 1500. PT CURRENTLY ON NC AT 2L/MIN SPO2 IN THE MID 90'S. VSS, AFEBRILE NOTED SKIN BREAK DOWN ON COCCYX AND ON RT KNEE. PT'S RT UPPER MIDLINE BENIGN AND PATENT. ALL MONITOR ALARMS REVIEWED. PT UNABLE TO UNDERSTAND POC.
[2019-07-02] MEDS: cefTRIAXone 1GM/50ML D5W 50 ML IV SCH (09:10)
[2019-07-02] MEDS ORDERED: FUROSEMIDE 20 MG TAB PO ONE (09:45)
[2019-07-02] MEDS: AZITHROMYCIN 500MG/ 250ML 250 ML IV SCH (10:02)
[2019-07-02] MEDS: ENOXAPARIN SOD 30 MG/0.3 ML SYRINGE SC SCH (10:03)
[2019-07-02] MEDS: PANTOPRAZOLE 40 MG TAB PO SCH (10:03)
[2019-07-02] MEDS: LACTULOSE 20Gm/30ML SOLN PO PRN (11:06)
--- NOTE | 2019-07-02 11:11 | NUR ---
Nutrition Follow-up Wt.: 68.9 kg Pt`s confused with no family by bedside. per RN doc pt eating 75% of meals. pt is currently CCHO 60 gm fine chop diet. Est Energy needs: 4889-9111 kcals (30-35 kcal/kgBW) d/t acute Renal failure, Est Protein needs: 36-58 gms/day (0.5-0.8 gm/kgBW) d/t acute Renal failure. Will continue to monitor and reassess prn. Labs: BUN 55 H, CREAT 2.71 H, GLU 217 H, CA 7.6 L, ALB 1.6 L GI: pt had 1 BM yesterday Skin: Pt had 12 high pt`s with DTI per RN doc. refer to WC notes for details PES: 1) Inadequate oral intake r/t pt with poor appetite aeb pt PO intake of 35% of meal 2) Altered nutrition related lab values current medical condition aeb elev RFTs, low GFR (Stg 4), hyperglycemia, severe hypoalbuminemia Recommendations: 1) Continue to closely monitor/assist pt PO intake to meet at least 75% of meals 2) If pt appetite remains poor (<50% PO intake) consider supplemental nutrition support with glucerna 1 carton bid. 3) Continue current plan of care. 4) F/u mod 3-5 days
[2019-07-02] MEDS: MUPIROCIN 2% OINT 15gm or 22gm EACHNOSTRI SCH ×2 (11:14→22:00)
[2019-07-02] MEDS: SODIUM CHLOR 0.9% PF (SALINE LOCK) 10ML VIAL/SYR IV SCH ×2 (11:14→22:00)
[2019-07-02] MEDS: MIDODRINE HCL 10 MG TAB PO SCH ×2 (12:31→17:53)
--- NOTE | 2019-07-02 16:00 | NUR ---
VQ SCAN NOT DONE TODAY PT UNABLE TO STAND STILL FOR TEN MINUTES THAT ARE REQUIRED, PT NOT FOLLOWING DIRECTIONS.
[2019-07-02] MEDS: NOREPINEPHRINE 8 MG/250ML KIT 250 ML IV SCH (16:41)
--- NOTE | 2019-07-02 18:00 | NUR ---
TOOK OFF PT'S MITTENS FOR 3 MIN A TRIAL TO SEE IF HE COULD BE TAKEN OF MITTENS. I WENT TO GET A MEDICATION FROM THE MEDICATION ROOM IN LESS THAN ONE MIN PT PULLED OUT HIS IV. PT NEEDS FREQUENT RE- ORIENTATION AND COACHING TO STOP PULLING OUT HIS MITTENS OFF AND PULLING ON HIS LINES.
[2019-07-02] MEDS: traMADol HCL 50 MG TAB PO PRN (20:42)
--- NOTE | 2019-07-02 20:43 | NUR ---
PT WANTS MITTENS OFF, SAIS THE CATHETER BOTHERS HIM A LOT. SPC IN PLACE, DRAINING YELLOW , CLOUDY URINE, APPROX 300 ML IN THE DRAINAGE BAG.
[2019-07-03] VITALS (11 sets, daily range): BP systolic 107–133; BP diastolic 52–63
[2019-07-03] MEDS: ALBUTEROL SULF 2.5 MG/0.5ML(0.5%) NEB SOLN NEB SCH ×4 (00:20→19:02)
[2019-07-03] MEDS: IPRATROPIUM BROM 0.5 MG/2.5ML INH SOL NEB SCH ×4 (00:20→19:02)
[2019-07-03 04:28] LABS: Hemoglobin 8.6 g/dL (13.5-17.5); Mean Corpuscular Hemoglobin 34.6 pg (28.0-32.0); Mean Corpuscular Hgb Conc. 33.4 g/dL (32.0-36.0); Red Blood Cells 2.49 10^6/uL (4.5-5.90); White Blood Cell 11.4 10^3/uL (4.4-10.8)
[2019-07-03 04:31] LABS: Hematocrit 25.8 % (41.0-53.0); Mean Corpuscular Volume 103.6 fL (80.0-100.0); Platelet Count (auto) 229 10^3/uL (140-450); Red Cell Distribution Width 17.1 % (11.8-14.3)
[2019-07-03 04:51] LABS: Potassium 4.2 mmol/L (3.5-5.1)
[2019-07-03 04:59] LABS: Albumin 1.8 g/dL (3.4-5.0); BUN/Creatinine Ratio 18.8; Bilirubin, Total 0.4 mg/dL (0.2-1.0); Calcium 8.1 mg/dL (8.5-10.1); Total Protein 5.5 g/dL (6.4-8.2)
[2019-07-03 05:14] LABS: Basophils % (manual) 0 (0.0-2.0); Blast Cells 0; Eosinophils % (manual) 0 (0-7); Metamyelocytes % 0; Myelocytes % 0; Promyelocytes % 0; Reactive Lymphocytes 0
[2019-07-03] MEDS: HYDROCORTISONE SOD SUCC 100 MG/2ML INJ VIAL IV SCH ×3 (06:01→21:49)
[2019-07-03] MEDS: MIDODRINE HCL 10 MG TAB PO SCH ×3 (06:01→17:50)
[2019-07-03] MEDS: InsuLIN REG 1unit/0.01ml Soln (100units/ml) SC SCH ×4 (06:06→21:51)
[2019-07-03 06:37] LABS: Band Neutrophils % (manual) 16
[2019-07-03 06:38] LABS: Lymphocytes % (manual) 6 (10.0-50.0); Monocytes % (manual) 4 (0-12)
[2019-07-03] MEDS: ACCU-CHEK COMFORT CURVE STRIP VI SCH ×4 (07:00→21:50)
[2019-07-03] MEDS: cefTRIAXone 1GM/50ML D5W 50 ML IV SCH (09:00)
[2019-07-03] MEDS: ENOXAPARIN SOD 30 MG/0.3 ML SYRINGE SC SCH (09:02)
--- NOTE | 2019-07-03 09:30 | NUR ---
PICC Line Dressing Changes PICC line dressing change done with a sterile technique. Cleansed with chloraprep scrub. Stat lock, and bio-patch as available. Occlusive dressing appliedSee e-MAR for medications given during this visit.
--- NOTE | 2019-07-03 09:30 | NUR ---
SUPRAPUBIC DRESSING CHANGED. SITE APPEARS ASYMPTOMATIC. NO REDNESS OR DRAINAGE NOTED. SUTURES INTACT. TEGADERM PLACED AND TAPED TO SECURE. ABD. PLACED TO PREVENT PATIENT FROM TUGGING CATHETER
[2019-07-03] MEDS: MUPIROCIN 2% OINT 15gm or 22gm EACHNOSTRI SCH ×2 (09:43→21:49)
[2019-07-03] MEDS: SODIUM CHLOR 0.9% PF (SALINE LOCK) 10ML VIAL/SYR IV SCH ×2 (09:43→21:49)
[2019-07-03] MEDS: PANTOPRAZOLE 40 MG TAB PO SCH (09:43)
--- NOTE | 2019-07-03 10:05 | NUR ---
assessment Patient is a 88 year old male who is in ICU. Per patients daughter Evelyn prior to admission patient lived home with his Raiza and was independent. Patient has a fww and a wheelchair for home use. Patients PCP is Dr Denny. Lefty Rivas patient came to ER for shortness of breath and was admitted. Patient may need home health for IV ABX. Patient is diagnosed with Sepsis. Patient has an advanced directive and his son Gabino is his POA. Evelyn verbalized understanding and agreed to discharge plan home. Addendum: 07/03/19 at 1602 by Love MANUEL Amended: Links added.
--- NOTE | 2019-07-03 10:07 | NUR ---
REPORT GIVEN TO ARIANNA HAQUE UPDATED ON PLAN OF CARE. QUESTIONS AND CONCERNS ADDRESSED. PATIENT TO BE TRANSPORTED TO 212B WITH SITTER. SHERWIN, AWARE OF ROOM CHANGE.
--- NOTE | 2019-07-03 11:02 | NUR ---
PATIENT ARRIVED ON UNIT. PATIENT A/OX3, ORIENTED TO THIS RN, TELE UNIT, ROOM 212 BED B. SITTER AT BEDSIDE FOR ADDITIONAL SAFETY. FALL PRECAUTIONS IN PLACE. CALL LIGHT WITHIN REACH. NO C/O PAIN OR DISCOMFORT. WILL CONTINUE TO MONITOR
--- NOTE | 2019-07-03 11:10 | NUR ---
PATIENT TRANSFERRED FROM ICU TO [facility]. ALL BELONGINGS WITH PATIENTS. TRANSFERRED ON 2L/MIN NC. NO DISTRESS NOTED. BED SET IN LOWEST POSITION, CALL LIGHT AT REACH, BED ALARM ON. SITTER AND RN AT BEDSIDE. TELE IN PLACE.
[2019-07-03] MEDS: SODIUM CHLORIDE 0.9% 1,000 ML IV SCH ×2 (11:30→21:50)
[2019-07-03] MEDS: AZITHROMYCIN 500MG/ 250ML 250 ML IV SCH (11:30)
--- NOTE | 2019-07-03 11:34 | NUR ---
SHERWIN UPDATED ON PLAN OF CARE, AND TRANSFERRED PHONE CALL TO PATIENT ROOM.
[2019-07-03] MEDS ORDERED: FUROSEMIDE 20 MG/2 ML VIAL IV ONE ×2 (12:00)
--- NOTE | 2019-07-03 16:02 | NUR ---
re-assessment re: ss consult Per ss consult multiple falls at home. Per patients daughter Evelyn patient fell once at home due to his weakness and shortness of breath. Patient may also need home health for PT. Patient will have a PT evaluation prior to discharge. Addendum: 07/03/19 at 1605 by Love MANUEL Amended: Links added.
--- NOTE | 2019-07-03 18:55 | NUR ---
CARE ENDORSED TO PHYLLIS KELLER.
--- NOTE | 2019-07-03 19:15 | NUR ---
Opening Shift Note Assumed care of patient, awake and alert. No S/S of distress/SOB or pain. Patient's suprapubic catheter dressing clean, dry, and intact. Patient's abdominal binder in place. Zendejas draining cloudy urine. Patient's PICC line flushing. Safety measures in place bed in lowest position, side rails up x2, and call light within reach. Sitter placed with patient for safety. Instructed on POC and to call for assist PRN, will continue to monitor for changes Q1hr and PRN.
[2019-07-03] MEDS: ATORVASTATIN 20 MG TAB PO SCH (21:50)
[2019-07-04] MEDS: IPRATROPIUM BROM 0.5 MG/2.5ML INH SOL NEB SCH ×4 (00:16→18:51)
[2019-07-04] MEDS: ALBUTEROL SULF 2.5 MG/0.5ML(0.5%) NEB SOLN NEB SCH ×4 (00:16→18:51)
[2019-07-04 00:49] VITALS: BP 107/63
[2019-07-04 05:00] VITALS: BP 97/59
[2019-07-04 05:44] LABS: Hematocrit 24.1 % (41.0-53.0)
[2019-07-04 05:46] LABS: Hemoglobin 8.2 g/dL (13.5-17.5); Mean Corpuscular Volume 102.8 fL (80.0-100.0); Platelet Count (auto) 244 10^3/uL (140-450); Red Blood Cells 2.35 10^6/uL (4.5-5.90); Red Cell Distribution Width 17.2 % (11.8-14.3); White Blood Cell 9.5 10^3/uL (4.4-10.8)
[2019-07-04] MEDS: MIDODRINE HCL 10 MG TAB PO SCH ×3 (05:57→18:20)
[2019-07-04] MEDS: HYDROCORTISONE SOD SUCC 100 MG/2ML INJ VIAL IV SCH ×2 (05:57→15:19)
[2019-07-04 06:01] LABS: Potassium 3.9 mmol/L (3.5-5.1)
[2019-07-04] MEDS: ACCU-CHEK COMFORT CURVE STRIP VI SCH ×3 (06:11→17:00)
[2019-07-04 06:12] LABS: Albumin 1.8 g/dL (3.4-5.0); BUN/Creatinine Ratio 19.2; Bilirubin, Total 0.4 mg/dL (0.2-1.0); Calcium 7.6 mg/dL (8.5-10.1); Total Protein 5.4 g/dL (6.4-8.2)
[2019-07-04] MEDS: InsuLIN REG 1unit/0.01ml Soln (100units/ml) SC SCH ×3 (06:12→18:21)
[2019-07-04 06:16] LABS: Folate (Folic Acid) 11.98 ng/mL (5.38-24)
[2019-07-04 06:22] LABS: Basophils % (manual) 0 (0.0-2.0); Blast Cells 0; Eosinophils % (manual) 0 (0-7); Promyelocytes % 0; Reactive Lymphocytes 0
[2019-07-04 07:17] LABS: Band Neutrophils % (manual) 9; Lymphocytes % (manual) 5 (10.0-50.0); Metamyelocytes % 1; Monocytes % (manual) 4 (0-12); Myelocytes % 1
--- NOTE | 2019-07-04 07:30 | NUR ---
Assumed care Patient currently in bed, patient is confused. No s/s of distress noted at this time. Fall precautions in place. Sitter at bedside for safety. Suprapubic catheter secured and hung below waistline, patent and draining. Will continue care.
--- NOTE | 2019-07-04 08:30 | NUR ---
Tachycardia Patient heart rate in the 150's, blood pressure 127/57. Patient having abdominal pain. Patient denies chest pain. Dr. Arabella Ruth notified new orders to bolus 500ml of NS in one hour.
--- NOTE | 2019-07-04 08:50 | NUR ---
Stat EKG ordered New orders to perform STAT EKG by Dr. Ruth. EKG reviewed by no new orders at this time. Current HR 109 Blood Pressure 123/54.
[2019-07-04 09:00] VITALS: BP 126/54
[2019-07-04] MEDS ORDERED: levoFLOXacin 500MG 100 ML IV ONE (09:00)
[2019-07-04] MEDS: PANTOPRAZOLE 40 MG TAB PO SCH (09:52)
[2019-07-04] MEDS: ASPirin-EC 81 mg tab PO SCH (09:52)
[2019-07-04] MEDS: AZITHROMYCIN 250 MG TAB PO SCH (09:52)
[2019-07-04] MEDS: ENOXAPARIN SOD 30 MG/0.3 ML SYRINGE SC SCH (09:52)
[2019-07-04] MEDS: SODIUM CHLOR 0.9% PF (SALINE LOCK) 10ML VIAL/SYR IV SCH (09:52)
[2019-07-04] MEDS: MUPIROCIN 2% OINT 15gm or 22gm EACHNOSTRI SCH (09:52)
[2019-07-04] MEDS: SODIUM CHLORIDE 0.9% 1,000 ML IV SCH (12:02)
[2019-07-04 13:00] VITALS: BP 117/46
--- NOTE | 2019-07-04 14:05 | NUR ---
Attempted PT treatment, pt refused. Will try again tomorrow.
[2019-07-04 17:00] VITALS: BP 110/48
--- NOTE | 2019-07-04 18:51 | NUR ---
RT NOTE PT WAS SEEN BY RT FOR HHN TX. PT TOLERATES WELL VIA MASK. NO ADVERSE REACTION NOTED. CONT ORDERED Addendum: 07/04/19 at 1854 by Christy Lao RT Amended: Links added.
--- NOTE | 2019-07-04 19:40 | NUR ---
Opening Shift Note Pt is resting in bed with eyes open and resp rate is even and unlabored. No s/s of any distress noted at this time. Pt is A&Ox1 and sitter is at bedside for pt safety. POC discussed with pt and pt verbalizes understanding but needs much reinforcement. Pt has suprapubic catheter is also incont of urine. Bladder palpated and non distended at this time. Bed is low, wheels are locked, and call light is with in reach. Bed alarm is set for pt safety.
[2019-07-04 21:31] VITALS: BP 123/69
[2019-07-05] MEDS: SODIUM CHLOR 0.9% PF (SALINE LOCK) 10ML VIAL/SYR IV SCH ×3 (00:02→22:59)
[2019-07-05] MEDS: MUPIROCIN 2% OINT 15gm or 22gm EACHNOSTRI SCH ×3 (00:02→22:59)
[2019-07-05] MEDS: HYDROCORTISONE SOD SUCC 100 MG/2ML INJ VIAL IV SCH ×4 (00:03→23:00)
[2019-07-05] MEDS: ATORVASTATIN 20 MG TAB PO SCH ×2 (00:03→23:00)
[2019-07-05] MEDS: ALBUTEROL SULF 2.5 MG/0.5ML(0.5%) NEB SOLN NEB SCH ×4 (00:04→18:18)
[2019-07-05] MEDS: IPRATROPIUM BROM 0.5 MG/2.5ML INH SOL NEB SCH ×4 (00:04→18:18)
[2019-07-05] MEDS: InsuLIN REG 1unit/0.01ml Soln (100units/ml) SC SCH ×5 (00:05→23:01)
[2019-07-05] MEDS: ACCU-CHEK COMFORT CURVE STRIP VI SCH ×5 (00:05→23:01)
--- NOTE | 2019-07-05 00:07 | NUR ---
RT NOTE PT WAS SEEN BY RT FOR HHN TX. PT TOLERATES WELL VIA MASK. NO ADVERSE REACTION NOTED. SITTER AT BEDSIDE. CONT ORDERED Addendum: 07/05/19 at 0007 by Christy Lao RT Amended: Links added.
[2019-07-05 05:06] VITALS: BP 125/46
[2019-07-05] MEDS: SODIUM CHLORIDE 0.9% 1,000 ML IV SCH ×2 (06:39→13:54)
[2019-07-05] MEDS: MIDODRINE HCL 10 MG TAB PO SCH ×3 (06:39→17:59)
--- NOTE | 2019-07-05 08:30 | NUR ---
SHERWIN UPDATED ON PLAN OF CARE, AND TRANSFERRED PHONE CALL TO PATIENT ROOM.
[2019-07-05 09:55] VITALS: BP 127/58
[2019-07-05] MEDS ORDERED: levoFLOXacin 250MG 50 ML IV SCH (10:00)
[2019-07-05] MEDS: ASPirin-EC 81 mg tab PO SCH (10:18)
[2019-07-05] MEDS: PANTOPRAZOLE 40 MG TAB PO SCH (10:18)
[2019-07-05] MEDS: AZITHROMYCIN 250 MG TAB PO SCH (10:18)
[2019-07-05] MEDS: ENOXAPARIN SOD 30 MG/0.3 ML SYRINGE SC SCH (10:19)
--- NOTE | 2019-07-05 12:50 | NUR ---
Nutrition Follow-up Wt.: 65.2 kg Pt reports appetite is good. Per RETAIL DEPARTMENT MANAGER in room pt ate most of breakfast this morning. Per RN doc pt intake is adequate 75% today. pt is currently CCHO 60 gm fine chop diet. Est Energy needs: 5074-7727 kcals (30-35 kcal/kgBW) d/t acute Renal failure, Est Protein needs: 36-58 gms/day (0.5-0.8 gm/kgBW) d/t acute Renal failure. Will continue to monitor and reassess prn. Labs: BUN 59H, Creat 3.08H, Alb 1.8L, Ca 7.6L GI: pt had 3 BM 07/04 per RN doc Skin: Pt had 15 mod risk pt`s with DTI per RN doc. refer to WC notes for details PES: 1) Possibly resolving: Inadequate oral intake r/t pt with poor appetite aeb pt PO intake of 35% of meal 2) Altered nutrition related lab values current medical condition aeb elev RFTs, low GFR (Stg 4), hyperglycemia, severe hypoalbuminemia Recommendations: 1) Continue to closely monitor/assist pt PO intake to meet at least 75% of meals 2) If pt appetite remains poor (<50% PO intake) consider supplemental nutrition support with glucerna 1 carton bid. 3) Continue current plan of care. 4) F/u mod 3-5 days
[2019-07-05 13:10] VITALS: BP 122/57
--- NOTE | 2019-07-05 14:00 | NUR ---
Wound care Wound care performed to right knee, site cleansed with normal saline and pat dried with 4x4 gauze, thera honey applied, wound covered with Optifoam. Wound care performed to right elbow, ite cleansed with normal saline and pat dried with 4x4 gauze, thera honey applied, wound covered with Optifoam. Sacral DTI cleansed, skin barrier applied and covered with Optifoam.
--- NOTE | 2019-07-05 16:06 | NUR ---
Attempt to obtain consent Per MD order to obtain consent for: Cytoscopy with direct visual internal urethrotomy, right ureteral stent placement and right extracorporeal shockwave lithotripsy. Procedure requested to be done on 07/08/19 at 11:00 am. Unable to obtain consent from patient as he is confused, attempted phone call to Raiza was made with no answer. Will attempt a second call at a later time.
[2019-07-05 17:00] VITALS: BP 124/60
--- NOTE | 2019-07-05 18:18 | NUR ---
RT NOTE PT WAS SEEN BY RT FOR HHN TX. PT TOLERATES WELL VIA MASK. NO ADVRSE R
--- NOTE | 2019-07-05 18:18 | NUR ---
RT NOTE PT WAS SEEN BY RT FOR HHN TX. PT TOLERATES WELL VIA MASK. NO ADVERSE REACTION NOTED. SITTER AT BEDSIDE. CONT ORDERED Addendum: 07/05/19 at 1838 by Christy Lao RT Amended: Links added.
--- NOTE | 2019-07-05 19:45 | NUR ---
PT'S ; SHERWIN VAZ GAVE CONSENT FOR MONDAY PROCEDURE AND WITNESSED BY THIS RN AND AMIRA PENA RN -SEE CONSENT FORMS IN MEDICAL CHART
[2019-07-05 21:30] VITALS: BP 127/46
[2019-07-06] MEDS: IPRATROPIUM BROM 0.5 MG/2.5ML INH SOL NEB SCH ×4 (00:37→18:28)
[2019-07-06] MEDS: ALBUTEROL SULF 2.5 MG/0.5ML(0.5%) NEB SOLN NEB SCH ×4 (00:38→18:28)
[2019-07-06 05:00] VITALS: BP 123/51
[2019-07-06] MEDS: SODIUM CHLORIDE 0.9% 1,000 ML IV SCH ×2 (06:24→18:08)
[2019-07-06] MEDS: HYDROCORTISONE SOD SUCC 100 MG/2ML INJ VIAL IV SCH ×3 (06:24→23:07)
[2019-07-06] MEDS: MIDODRINE HCL 10 MG TAB PO SCH ×3 (06:25→18:09)
[2019-07-06] MEDS: InsuLIN REG 1unit/0.01ml Soln (100units/ml) SC SCH ×4 (06:26→23:10)
[2019-07-06] MEDS: ACCU-CHEK COMFORT CURVE STRIP VI SCH ×4 (06:26→23:11)
[2019-07-06 06:43] LABS: BUN/Creatinine Ratio 26.9; Calcium 7.8 mg/dL (8.5-10.1); Potassium 3.8 mmol/L (3.5-5.1)
--- NOTE | 2019-07-06 07:25 | NUR ---
Opening Shift Note Assumed care of patient, awake and alert x1, sitter at bedside. No S/S of distress/SOB or pain. Instructed on POC and to call for assist PRN, will continue to monitor for changes Q1hr and PRN.
[2019-07-06 09:00] VITALS: BP 135/58
[2019-07-06] MEDS: levoFLOXacin 250 MG TAB PO SCH (09:11)
[2019-07-06] MEDS: MUPIROCIN 2% OINT 15gm or 22gm EACHNOSTRI SCH ×2 (09:11→23:06)
[2019-07-06] MEDS: ASPirin-EC 81 mg tab PO SCH (09:11)
[2019-07-06] MEDS: AZITHROMYCIN 250 MG TAB PO SCH (09:13)
[2019-07-06] MEDS: ENOXAPARIN SOD 30 MG/0.3 ML SYRINGE SC SCH (09:13)
[2019-07-06] MEDS: PANTOPRAZOLE 40 MG TAB PO SCH (09:13)
[2019-07-06] MEDS: LACTULOSE 20Gm/30ML SOLN PO PRN (09:14)
[2019-07-06] MEDS: SODIUM CHLOR 0.9% PF (SALINE LOCK) 10ML VIAL/SYR IV SCH ×2 (11:52→23:07)
--- NOTE | 2019-07-06 12:00 | NUR ---
WOUND CARE NOTE: IN TO SEE PATIENT AT THIS TIME FOR WOUND REEVALUATION. PATIENT HAS CURRENT LEONIDAS SCORE OF 15, SITTER AT BEDSIDE. PATIENT IS ABLE TO ASSIST WITH HIS TURNING/REPOSITIONING. NEW WOUND PHOTOS TAKEN AT THIS TIME OF ALL SKIN INTEGRITY ISSUES. DTI TO LOWER BACK REMAINS INTACT, FADING PURPLE, PINK. SACRUM CONTINUES TO HAVE BLANCHABLE REDNESS. OPTIFOAM GENTLE SACRAL DRESSING APPLIED PER MD ORDER. RIGHT ELBOW SKIN TEAR IS MUCH IMPROVED, RE-EPITHELIALIZATION NOTED. APPLIED THERAHONEY, OPTIFOAM GENTLE DRESSING. RIGHT KNEE ABRASION IS INTACT, LEFT OPEN TO AIR. RECOMMEND: CONTINUATION WITH ALL WOUND CARE ORDERS PREVIOUSLY PRESCRIBED BY MD. Addendum: 07/06/19 at 1708 by Estefanía Gonzalez RN Amended: Links added.
[2019-07-06 13:00] VITALS: BP 121/64
[2019-07-06 17:00] VITALS: BP 126/55
[2019-07-06 19:56] VITALS: BP 126/55
--- NOTE | 2019-07-06 20:57 | NUR ---
SUPRAPUBIC CATH LEAKING BLOOD TINGED URINE AT THE INSERTION SITE, PT VOIDING VIA URINAL, AND HE HAS INCONT/DRIBBLING.
[2019-07-06 21:34] VITALS: BP 125/60
[2019-07-06] MEDS: ATORVASTATIN 20 MG TAB PO SCH (23:09)
[2019-07-06] MEDS: traMADol HCL 50 MG TAB PO PRN (23:18)
[2019-07-07] MEDS: ALBUTEROL SULF 2.5 MG/0.5ML(0.5%) NEB SOLN NEB SCH ×4 (00:31→18:59)
[2019-07-07] MEDS: IPRATROPIUM BROM 0.5 MG/2.5ML INH SOL NEB SCH ×4 (00:31→18:59)
--- NOTE | 2019-07-07 01:00 | NUR ---
REINFORCING IRON AND REBAR WORKERS/CHIP REPORTS THAT PT HAS PULLED OUT HIS PICC LINE. UPON ASSESSING PT'S RIGHT UPPER ARM THE PICC LINE IS COMPLETELY OUT AND CATH TIP IS INTACT. PT IS CONFUSED AND STATING THAT, " I HAD THIS GROWTH COMING OUT OF MY ARM SO I HAD TO PULL IT OUT."
[2019-07-07 05:00] VITALS: BP 127/66
[2019-07-07] MEDS: HYDROCORTISONE SOD SUCC 100 MG/2ML INJ VIAL IV SCH ×3 (05:46→22:04)
[2019-07-07] MEDS: SODIUM CHLORIDE 0.9% 1,000 ML IV SCH ×2 (05:47→22:04)
[2019-07-07] MEDS: MIDODRINE HCL 10 MG TAB PO SCH ×3 (06:18→17:26)
[2019-07-07] MEDS: InsuLIN REG 1unit/0.01ml Soln (100units/ml) SC SCH ×4 (06:19→22:12)
[2019-07-07] MEDS: ACCU-CHEK COMFORT CURVE STRIP VI SCH ×4 (06:20→22:05)
--- NOTE | 2019-07-07 07:26 | NUR ---
Opening Shift Note Assumed care of patient, resting in bed with eyes closed. No S/S of distress/SOB or pain, breaths are even and unlabored. Sitter present at bedside, bed is set in lowest locked position with side rails up x 2 for safety and call light is within reach. Noted suprapubic catheter is in place, patent/draining into bag hung below bladder. Will continue to monitor for changes Q1hr and PRN.
[2019-07-07 07:27] LABS: BUN/Creatinine Ratio 28.1; Calcium 7.8 mg/dL (8.5-10.1); Potassium 4.1 mmol/L (3.5-5.1)
--- NOTE | 2019-07-07 08:40 | NUR ---
IV insertion IV access obtained, via clean sterile technique by inserting 20 gauge catheter at right forearm after one attempt. IV secured properly. No trauma to site. Patient tolerated well.
[2019-07-07 09:00] VITALS: BP 126/91
[2019-07-07] MEDS: levoFLOXacin 250 MG TAB PO SCH (09:30)
[2019-07-07] MEDS: AZITHROMYCIN 250 MG TAB PO SCH (09:30)
[2019-07-07] MEDS: PANTOPRAZOLE 40 MG TAB PO SCH (09:30)
[2019-07-07] MEDS: ENOXAPARIN SOD 30 MG/0.3 ML SYRINGE SC SCH (09:30)
[2019-07-07] MEDS: MUPIROCIN 2% OINT 15gm or 22gm EACHNOSTRI SCH ×2 (09:31→22:05)
[2019-07-07] MEDS: SODIUM CHLOR 0.9% PF (SALINE LOCK) 10ML VIAL/SYR IV SCH ×2 (09:31→22:04)
[2019-07-07 13:00] VITALS: BP 125/45
[2019-07-07 17:34] VITALS: BP 119/51
[2019-07-07 22:00] VITALS: BP 115/50
[2019-07-07] MEDS: ATORVASTATIN 20 MG TAB PO SCH (22:04)
[2019-07-08] MEDS: ALBUTEROL SULF 2.5 MG/0.5ML(0.5%) NEB SOLN NEB SCH ×4 (00:32→19:07)
[2019-07-08] MEDS: IPRATROPIUM BROM 0.5 MG/2.5ML INH SOL NEB SCH ×4 (00:32→19:07)
[2019-07-08 05:00] VITALS: BP 128/48
[2019-07-08] MEDS: MIDODRINE HCL 10 MG TAB PO SCH ×3 (05:21→18:01)
[2019-07-08] MEDS: ACCU-CHEK COMFORT CURVE STRIP VI SCH ×4 (05:51→22:02)
[2019-07-08] MEDS: InsuLIN REG 1unit/0.01ml Soln (100units/ml) SC SCH ×4 (05:51→22:02)
[2019-07-08] MEDS: HYDROCORTISONE SOD SUCC 100 MG/2ML INJ VIAL IV SCH ×3 (05:51→22:02)
--- NOTE | 2019-07-08 06:45 | NUR ---
PATIENT REMAINS NPO SINCE MIDNIGHT FOR CYSTOSCOPY WITH DR GALLO THIS MORNING. PATIENT HAS SUPRAPUBIC CATHETER AND URINATES INTO UNRINAL. SIIERT AT [facility].
[2019-07-08 08:27] LABS: Hematocrit 27.5 % (41.0-53.0); Hemoglobin 9.2 g/dL (13.5-17.5); Mean Corpuscular Hemoglobin 35.5 pg (28.0-32.0); Mean Corpuscular Hgb Conc. 33.6 g/dL (32.0-36.0); Mean Corpuscular Volume 105.6 fL (80.0-100.0); Platelet Count (auto) 198 10^3/uL (140-450); Red Cell Distribution Width 17.3 % (11.8-14.3)
[2019-07-08 08:30] LABS: Band Neutrophils % (manual) 0; Basophils % (manual) 0 (0.0-2.0); Blast Cells 0; Eosinophils % (manual) 0 (0-7); Monocytes % (manual) 0 (0-12); Myelocytes % 0; Promyelocytes % 0; Reactive Lymphocytes 0
[2019-07-08 08:46] LABS: INR 1.19 (0.9-1.15); Partial Thromboplastin Time 28.8 sec (23.64-32.05)
[2019-07-08 08:47] LABS: Lymphocytes % (manual) 13 (10.0-50.0); Metamyelocytes % 1
--- NOTE | 2019-07-08 08:56 | NUR ---
Patient off unit Taken down to pre-op for procedure. IV flushed prior and is intact/patent. No distress noted upon departure. Care endorsed to ARIANNA Rodriguez.
[2019-07-08] MEDS ORDERED: ceFAZolin 1GM/50ML 50 ML IV ONE (08:57)
[2019-07-08] MEDS: SODIUM CHLORIDE 0.9% 1,000 ML IV SCH ×2 (08:57→22:43)
[2019-07-08 09:00] VITALS: BP 127/78
[2019-07-08] MEDS ORDERED: IOHEXOL 300 MG/ML 100ML BOTTLE IJ ONE (09:24)
[2019-07-08] MEDS: PANTOPRAZOLE 40 MG TAB PO SCH (10:00)
[2019-07-08] MEDS: SODIUM CHLOR 0.9% PF (SALINE LOCK) 10ML VIAL/SYR IV SCH ×2 (10:00→22:02)
[2019-07-08] MEDS: ENOXAPARIN SOD 30 MG/0.3 ML SYRINGE SC SCH (10:00)
--- NOTE | 2019-07-08 11:25 | NUR ---
Nutrition Follow-up Wt.: 64.0 kg Pt was off the floor for cystoscopy per RN. pt is currently NPO for procedure but was on CCHO 60 gm fine chop diet with adequate PO of 75% x 2 days per RN doc Est Energy needs: 5619-5065 kcals (30-35 kcal/kgBW) d/t acute Renal failure, Est Protein needs: 36-58 gms/day (0.5-0.8 gm/kgBW) d/t acute Renal failure. Will continue to monitor and reassess prn. Labs: GLU 217 H, CA 7.9 L, BUN 56 H, CREAT 1.99 H GI: pt had 1 BM today per RN doc Skin: Pt had 15 mod risk pt`s with DTI per RN doc. refer to WC notes for details PES: 1) Possibly resolving: Inadequate oral intake r/t pt with poor appetite aeb pt PO intake of 35% of meal 2) Altered nutrition related lab values current medical condition aeb elev RFTs, low GFR (Stg 4), hyperglycemia, severe hypoalbuminemia Recommendations: 1) resume diet as medically feasible. 2) If pt appetite remains poor (<50% PO intake) consider supplemental nutrition support with glucerna 1 carton bid. 3) Continue current plan of care. 4) F/u mod 3-5 days
[2019-07-08] MEDS ORDERED: ETOMIDATE (2MG/ML) 20ML VIAL IV ONE (12:47)
[2019-07-08] MEDS ORDERED: LIDOCAINE 2% (LOCAL ANESTH.) PF 5ml SDV ONE (12:48)
[2019-07-08] MEDS ORDERED: ROCURONIUM 10MG/ML 10ML VIAL IV ONE (12:49)
[2019-07-08] MEDS ORDERED: fentaNYL CITRATE 100 MCG/2 ML VL ONE (13:13)
[2019-07-08] MEDS ORDERED: HYDROmorphone HCL 2 MG/ML VL IV PRN (13:15)
[2019-07-08] MEDS ORDERED: ONDANSETRON HCL 4 MG/2 ML VIAL IV PRN (13:15)
[2019-07-08] MEDS ORDERED: ACCU-CHEK COMFORT CURVE STRIP VI ONE (13:15)
[2019-07-08] MEDS ORDERED: NALOXONE HCL 0.4 MG/ML VIAL IV PRN (13:15)
--- NOTE | 2019-07-08 14:29 | NUR ---
Pt if off unit for cystoscopy procedure. Will attempt PT later.
--- NOTE | 2019-07-08 15:10 | NUR ---
Patient returned to floor from recovery Patient is currently resting in bed with eyes closed, breath are even and unlabored. No s/s of distress, SOB or pain noted. Patient currently has a Zendejas in place, hung below bladder that is draining garcia colored fluid. Will continue to monitor patient.
[2019-07-08 15:37] VITALS: BP 141/68
[2019-07-08] MEDS: MUPIROCIN 2% OINT 15gm or 22gm EACHNOSTRI SCH ×2 (15:42→22:02)
[2019-07-08] MEDS: levoFLOXacin 250 MG TAB PO SCH (15:42)
[2019-07-08 17:16] VITALS: BP 111/79
--- NOTE | 2019-07-08 19:20 | NUR ---
Opening Shift Note Received report from Kavita KELLER. Assumed care of patient, awake and alert to self and birthday. Sitter at bedside for safety. No S/S of distress/SOB or pain. Instructed on POC and to call for assist PRN. Fall precaution measures in place, will continue to monitor for changes Q1hr and PRN.
[2019-07-08 22:00] VITALS: BP 112/52
[2019-07-08] MEDS: ATORVASTATIN 20 MG TAB PO SCH (22:02)
[2019-07-09] VITALS (7 sets, daily range): BP systolic 98–134; BP diastolic 51–60
[2019-07-09] MEDS: IPRATROPIUM BROM 0.5 MG/2.5ML INH SOL NEB SCH ×5 (00:50→21:01)
[2019-07-09] MEDS: ALBUTEROL SULF 2.5 MG/0.5ML(0.5%) NEB SOLN NEB SCH ×3 (00:50→11:18)
[2019-07-09] MEDS: MIDODRINE HCL 10 MG TAB PO SCH ×3 (06:00→17:45)
[2019-07-09] MEDS: HYDROCORTISONE SOD SUCC 100 MG/2ML INJ VIAL IV SCH ×3 (06:00→21:59)
[2019-07-09] MEDS: ACCU-CHEK COMFORT CURVE STRIP VI SCH ×4 (06:49→21:54)
[2019-07-09] MEDS: InsuLIN REG 1unit/0.01ml Soln (100units/ml) SC SCH ×4 (06:50→21:54)
--- NOTE | 2019-07-09 07:17 | NUR ---
Opening Shift Note Assumed care of patient, resting in bed with eyes closed. No S/S of distress/SOB or pain, breaths are even and unlabored. Sitter present at bedside, bed is set in lowest locked position with side rails up x 2 for safety and call light is within reach. Noted Zendejas catheter in place, patent/draining into bag hung below bladder. Will continue to monitor for changes Q1hr and PRN.
--- NOTE | 2019-07-09 08:39 | NUR ---
RT at bedside for ABG blood draw
[2019-07-09] MEDS: ASPirin 81 mg TAB PO SCH (10:35)
[2019-07-09] MEDS: PANTOPRAZOLE 40 MG TAB PO SCH (10:35)
[2019-07-09] MEDS: levoFLOXacin 250 MG TAB PO SCH (10:35)
[2019-07-09] MEDS: SODIUM CHLOR 0.9% PF (SALINE LOCK) 10ML VIAL/SYR IV SCH ×2 (10:35→21:59)
[2019-07-09] MEDS: ENOXAPARIN SOD 30 MG/0.3 ML SYRINGE SC SCH (10:35)
[2019-07-09] MEDS: MUPIROCIN 2% OINT 15gm or 22gm EACHNOSTRI SCH ×2 (10:36→21:59)
--- NOTE | 2019-07-09 13:02 | NUR ---
I called [place] Screener Operator Debbie Crutis [phone] and left message asking if patient has transportation benefit.
--- NOTE | 2019-07-09 13:40 | NUR ---
Attempted PT treatment. Pt is still eating lunch, will attempt later.
[2019-07-09] MEDS: SODIUM CHLORIDE 0.9% 1,000 ML IV SCH (13:45)
--- NOTE | 2019-07-09 14:20 | NUR ---
Patient reports feeling short of breath RR: 26 HR: 121 O2: 88% on 3L/min oxymizer. Patient titrated to 5L/min oxymizer at this time and was given breathing technique instructions. Patient O2 after: 94% RR: 20 HR: 105. MD paged, awaiting call back to update MD on patient status.
--- NOTE | 2019-07-09 14:45 | NUR ---
Patient is now resting in bed, breaths are even and unlabored.
--- NOTE | 2019-07-09 15:00 | NUR ---
Spoke to MD Ruth Per MD, hold discharge until tomorrow morning, continue to monitor patient's oxygenation. New orders received and read back for verification, will proceed to carry out.
--- NOTE | 2019-07-09 15:04 | NUR ---
Attempted to call next of kinRaiza to update on POC Voicemail left. Awaiting call back.
--- NOTE | 2019-07-09 15:20 | NUR ---
Spoke to Raiza and updated her on POC. All questions answered at this time, verbalized understanding to discharge plan in the morning tomorrow.
--- NOTE | 2019-07-09 16:14 | NUR ---
EEG-ELECTROENCEPHALOGRAM COMPLETED ON 07/09/2019 @11:20.
--- NOTE | 2019-07-09 17:30 | NUR ---
D/C Planning Per consult for home health safety evaluation. physical therapy , medication management, vitals and home O2. Faxed clinical information to [facility]. Per Heike with [facility] [phone] patient has been accepted and service to start within 24-48hrs upon d/c day. Faxed clinical information to [facility] [phone] requesting for oxygen to be deliver to bed side.
--- NOTE | 2019-07-09 17:45 | NUR ---
Oxygen delivered at bedside
[2019-07-09] MEDS: LEVALBUTEROL HCL 1.25 MG/3 ML NEB NEB SCH ×2 (18:38→21:01)
--- NOTE | 2019-07-09 19:25 | NUR ---
Opening Shift Note Received report from Kavita KELLER. Assumed care of patient, awake and alert, sitter at bedside. No S/S of distress/SOB or pain. Instructed on POC and to call for assist PRN. Fall precaution measures in place, will continue to monitor for changes Q1hr and PRN.
--- NOTE | 2019-07-09 21:00 | NUR ---
Patient restless and states he couldn't breathe, already on 4L Oxymizer and O2 sat 99%. Paged RT for breathing treatment.
[2019-07-09] MEDS: ATORVASTATIN 20 MG TAB PO SCH (21:58)
[2019-07-09] MEDS: ALPRAZolam 0.25 MG TAB PO PRN (22:07)
[2019-07-10] VITALS (10 sets, daily range): BP systolic 72–157; BP diastolic 35–81
[2019-07-10] MEDS: IPRATROPIUM BROM 0.5 MG/2.5ML INH SOL NEB SCH ×5 (02:00→21:15)
[2019-07-10] MEDS: LEVALBUTEROL HCL 1.25 MG/3 ML NEB NEB SCH ×6 (02:00→21:15)
[2019-07-10] MEDS: SODIUM CHLORIDE 0.9% 1,000 ML IV SCH ×2 (03:10→14:30)
[2019-07-10] MEDS: MIDODRINE HCL 10 MG TAB PO SCH ×3 (06:10→17:36)
[2019-07-10] MEDS: HYDROCORTISONE SOD SUCC 100 MG/2ML INJ VIAL IV SCH ×3 (06:11→21:56)
[2019-07-10] MEDS: ACCU-CHEK COMFORT CURVE STRIP VI SCH ×4 (06:50→21:56)
[2019-07-10] MEDS: InsuLIN REG 1unit/0.01ml Soln (100units/ml) SC SCH ×4 (06:51→21:51)
--- NOTE | 2019-07-10 08:00 | NUR ---
Opening Shift Note Assumed care of patient, awake and alert. No S/S of distress/SOB or pain. Bed is low, locked with 2x side rails up. Call light is within reach. public bath attendant at bedside. Instructed on POC and to call for assist PRN, will continue to monitor for changes Q1hr and PRN.
[2019-07-10] MEDS: levoFLOXacin 250 MG TAB PO SCH (09:29)
[2019-07-10] MEDS: PANTOPRAZOLE 40 MG TAB PO SCH (09:29)
[2019-07-10] MEDS: ENOXAPARIN SOD 30 MG/0.3 ML SYRINGE SC SCH (09:29)
[2019-07-10] MEDS: ASPirin 81 mg TAB PO SCH (09:29)
[2019-07-10] MEDS: SODIUM CHLOR 0.9% PF (SALINE LOCK) 10ML VIAL/SYR IV SCH ×2 (09:30→21:57)
[2019-07-10 09:43] LABS: Basophils # (auto) 0 10 ^3/uL (0-0.2); Eosinophils # (auto) 0 10 ^3/uL (0-0.8); Hemoglobin 8.6 g/dL (13.5-17.5); Lymphocytes # (auto) 0.4 10 ^3/uL (0.4-5.4); Monocytes # (auto) 0.3 10 ^3/uL (0-1.3); Nucleated Red Blood Cells % 0.1 %
[2019-07-10 09:45] LABS: Basophils % (auto) 0.4 % (0.0-2.0); Hematocrit 26.2 % (41.0-53.0); Mean Corpuscular Hemoglobin 35.1 pg (28.0-32.0); Mean Corpuscular Hgb Conc. 32.8 g/dL (32.0-36.0); Mean Corpuscular Volume 106.8 fL (80.0-100.0); Monocytes % (auto) 4.1 % (0.0-12.0); Neutrophils # (auto) 6.9 10 ^3/uL (1.6-8.6); Neutrophils % (auto) 90.5 % (37.0-80.0); Platelet Count (auto) 134 10^3/uL (140-450); Red Blood Cells 2.45 10^6/uL (4.5-5.90); Red Cell Distribution Width 18.2 % (11.8-14.3); White Blood Cell 7.7 10^3/uL (4.4-10.8)
[2019-07-10 09:59] LABS: Albumin 2.2 g/dL (3.4-5.0); Calcium 7.6 mg/dL (8.5-10.1); Potassium 3.8 mmol/L (3.5-5.1)
[2019-07-10 10:02] LABS: BUN/Creatinine Ratio 29.2; Bilirubin, Total 0.5 mg/dL (0.2-1.0); Total Protein 5.2 g/dL (6.4-8.2)
[2019-07-10] MEDS: ALPRAZolam 0.25 MG TAB PO PRN ×2 (10:13→22:14)
[2019-07-10] MEDS: MUPIROCIN 2% OINT 15gm or 22gm EACHNOSTRI SCH (10:13)
[2019-07-10] MEDS ORDERED: SODIUM BICARBONATE 8.4 % INJ 50ML VIAL IV ONE ×2 (11:00→19:15)
--- NOTE | 2019-07-10 17:25 | NUR ---
Dr. Hema Garrido is updating JESSY Lloyd on POC. Dr. Garrido making family aware that patient needs left and right thoracentesis. Family is giving consent for procedure at this time. Will continue to monitor.
--- NOTE | 2019-07-10 17:29 | NUR ---
VQ Scan Spoke with Jared from Nuclear medicine and he stated that VQ scan could not be done because patient cannot follow directions. Will continue to monitor.
--- NOTE | 2019-07-10 19:00 | NUR ---
Code Assist Called 1854: Patient was laying supine on bedpan attempting to have bowel movement. Began to complain of SOB. O2 sats ranged from 65-74%/. Patient was sat up in high fowlers and instructed to take deep breaths. 1856 RT paged due to patient de-satting. 1899: Patients eyes began to roll back and was not responding to name BP:72/35 HR:50 02 SATS:20% on 4L Oxymizer. Code assist called at this time. Crash cart in room. 1904: BS 227, Patient responding to painful stimuli, eyes open, and patient following commands. O2 sats: 78-83% on 15 L O2 via Oxymizer. 1906: RT placed patient on BIPAP BP:127/72 HR: 137 02 SATS:98% ON BIPAP.
--- NOTE | 2019-07-10 19:09 | NUR ---
Respiratory note: ABG RESULTS REPORTED TO NICK TEAGUE. PT PLACED ON BIPAP AT THIS TIME.
[2019-07-10] MEDS ORDERED: FUROSEMIDE 40 MG/4 ML VIAL IV ONE (19:15)
[2019-07-10] MEDS ORDERED: SODIUM BICARBONATE 8.4% INJ 50ML SYRINGE ONE (19:35)
--- NOTE | 2019-07-10 19:55 | NUR ---
Called and report given to Dona KELLER in ICU regarding patient. All questions answered.
--- NOTE | 2019-07-10 20:05 | NUR ---
Transported patient to ICU: Transported patient to ICU via bed with RT, URBAN PLANNING PROFESSOR and this RN with oxygen on and monitors. Patient tolerated well.
[2019-07-10] MEDS ORDERED: LORazepam 2MG/ML-1ML VIAL IV ONE (21:00)
--- NOTE | 2019-07-10 21:20 | NUR ---
Respiratory note: TOOK PATIENT OFF BIPAP , MED NEB TX GIVEN AND TOLERATED WELL. NO ADVERSE REACTION NOTED. PLACED PT ON 6L OXYMIZER. SPO2 95% RN NOTIFIED.
--- NOTE | 2019-07-10 21:40 | NUR ---
Respiratory note: TOOK PT OFF OXYMIZER AND PLACED ON 8L SIMPLE MASK. PT WAS ASLEEP WITH MOUTH WIDE OPEN. RN INFORMED.
[2019-07-10] MEDS: ATORVASTATIN 20 MG TAB PO SCH (21:56)
[2019-07-11] VITALS (21 sets, daily range): BP systolic 112–139; BP diastolic 48–67
[2019-07-11] MEDS: LEVALBUTEROL HCL 1.25 MG/3 ML NEB NEB SCH ×6 (01:40→22:08)
--- NOTE | 2019-07-11 01:55 | NUR ---
Respiratory note: TITRATED FIO2 TO 6L SIMPLE MASK. PATIENT IS STILL ASLEEP WITH MOUTH OPEN.
[2019-07-11] MEDS: InsuLIN REG 1unit/0.01ml Soln (100units/ml) SC SCH ×4 (06:26→21:20)
[2019-07-11] MEDS: MIDODRINE HCL 10 MG TAB PO SCH ×3 (06:26→18:50)
[2019-07-11] MEDS: ACCU-CHEK COMFORT CURVE STRIP VI SCH ×4 (06:26→21:20)
[2019-07-11] MEDS: HYDROCORTISONE SOD SUCC 100 MG/2ML INJ VIAL IV SCH ×3 (06:26→21:17)
[2019-07-11] MEDS: IPRATROPIUM BROM 0.5 MG/2.5ML INH SOL NEB SCH ×3 (07:02→14:41)
--- NOTE | 2019-07-11 07:35 | NUR ---
DR JUDD AT BEDSIDE NO NEW ORDERS
--- NOTE | 2019-07-11 08:06 | NUR ---
SPOKE WITH SHERWIN PROVIDED PASSWORD, UPDATED ON PATIENTS STATUS AND PLAN OF CARE. ADDRESSED CODE STATUS AND DECISION MAKING WITH . PER , SHE IS POA AND TO MAKE DECISIONS IF PATIENT IS UNABLE. IF SHE IS UNABLE TO MAKE DECISIONS THEN SON CADENCE IS TO MAKE DECISIONS. RN WILL DISCUSS WITH PATIENT WHEN HE IS AWAKE
--- NOTE | 2019-07-11 08:19 | NUR ---
SPOKE WITH DR HECTOR UPDATED HIM ON EVENTS THAT OCCURRED LAST NIGHT. NEW ORDERS TO BE PLACED. THORACENTESIS CONSENTS IN CHART
[2019-07-11] MEDS ORDERED: FUROSEMIDE 40 MG/4 ML VIAL IV ONE (08:30)
--- NOTE | 2019-07-11 08:30 | NUR ---
REMOVED BIPAP AND PLACED PATIENT ON 8L OXYMIZER FOR BREAKFAST PATIENTS VITALS REMAINED STABLE, PATIENT FEEDING HIMSELF INDEPENDENTLY
--- NOTE | 2019-07-11 08:40 | NUR ---
DR Regino DUMONT AT BEDSIDE DISCUSSED PATIENTS STATUS AND PLAN OF CARE. PATIENT AGREES
--- NOTE | 2019-07-11 08:45 | NUR ---
CODE STATUS: FULL CODE MD AND RN DISCUSSED CODE STATUS WITH PATIENT (AOX4) AND HE WANTS EVERYTHING DONE TO [facility] AT THIS TIME. IF HE IS UNABLE TO MAKE DECISIONS, THEN WISHES FOR HIS TO MAKE DECISIONS ON HIS BEHALF
[2019-07-11 09:41] LABS: Basophils # (auto) 0 10 ^3/uL (0-0.2); Basophils % (auto) 0.1 % (0.0-2.0); Eosinophils # (auto) 0 10 ^3/uL (0-0.8); Hemoglobin 8.6 g/dL (13.5-17.5); Lymphocytes # (auto) 0.4 10 ^3/uL (0.4-5.4); Monocytes # (auto) 0.5 10 ^3/uL (0-1.3); White Blood Cell 8.2 10^3/uL (4.4-10.8)
[2019-07-11 09:43] LABS: Hematocrit 25.9 % (41.0-53.0); Lymphocytes % (auto) 4.6 % (10.0-50.0); Mean Corpuscular Hemoglobin 35.2 pg (28.0-32.0); Mean Corpuscular Hgb Conc. 33.1 g/dL (32.0-36.0); Mean Corpuscular Volume 106.6 fL (80.0-100.0); Monocytes % (auto) 6.1 % (0.0-12.0); Neutrophils # (auto) 7.3 10 ^3/uL (1.6-8.6); Neutrophils % (auto) 89.2 % (37.0-80.0); Nucleated Red Blood Cells % 0.2 %; Platelet Count (auto) 104 10^3/uL (140-450); Red Blood Cells 2.43 10^6/uL (4.5-5.90); Red Cell Distribution Width 18.4 % (11.8-14.3)
--- NOTE | 2019-07-11 09:55 | NUR ---
DAUGHTER SHARON CALLED PER PATIENT, OK TO GIVE HER PASSWORD AND UPDATE HER IN CURRENT STATUS. PROVIDED PLAN OF CARE TO SHARON, AND THEN TRANSFERRED CALL TO PORTABLE PHONE TO SPEAK TO PATIENT.
[2019-07-11 09:59] LABS: Albumin 2.2 g/dL (3.4-5.0); Calcium 7.6 mg/dL (8.5-10.1)
[2019-07-11] MEDS: SODIUM CHLOR 0.9% PF (SALINE LOCK) 10ML VIAL/SYR IV SCH ×2 (10:00→21:17)
[2019-07-11 10:03] LABS: BUN/Creatinine Ratio 28.7; Bilirubin, Total 0.5 mg/dL (0.2-1.0); Total Protein 5.3 g/dL (6.4-8.2)
[2019-07-11] MEDS: ASPirin 81 mg TAB PO SCH (10:18)
[2019-07-11] MEDS: PANTOPRAZOLE 40 MG TAB PO SCH (10:18)
--- NOTE | 2019-07-11 11:30 | NUR ---
DR HECTOR AT BEDSIDE RECEIVED NEW ORDERS AND PREPARING FOR THORACENTESIS
--- NOTE | 2019-07-11 11:50 | NUR ---
THORACENTESIS COMPLETED, RIGHT SIDE: REMOVED 450ML. PATIENT TOLERATED WELL
--- NOTE | 2019-07-11 11:56 | NUR ---
Nutrition Follow-up Wt.: 66.4 kg Pt sleeping with no family by bedside. pt is currently on regular diet with inadequate PO of 25% x 3 per RN doc Est Energy needs: 6473-0205 kcals (30-35 kcal/kgBW) d/t acute Renal failure, Est Protein needs: 36-58 gms/day (0.5-0.8 gm/kgBW) d/t acute Renal failure. Will continue to monitor and reassess prn. Labs: BUN 49 H, CREAT 1.68 H, ALB 2.2 L, CA 7.6 L, GLU 183 H GI: pt had 1 BM 6/2 per RN doc Skin: Pt had 14 mod risk pt`s with DTI per RN doc. refer to WC notes for details PES: 1) Possibly resolving: Inadequate oral intake r/t pt with poor appetite aeb pt PO intake of 35% of meal 2) Altered nutrition related lab values current medical condition aeb elev RFTs, low GFR (Stg 4), hyperglycemia, severe hypoalbuminemia Recommendations: 1) Consider CCHO 60 gm as pt with elev blood glu. 2) If pt appetite remains poor (<50% PO intake) consider supplemental nutrition support with glucerna 1 carton bid. 3) Continue current plan of care. 4) F/u mod 3-5 days
--- NOTE | 2019-07-11 12:05 | NUR ---
PATIENTS NEDA VILA CALLED FOR UPDATE PROVIDED PASSWORD, UPDATED ON PLAN OF CARE, ADDRESSED CONCERNS
--- NOTE | 2019-07-11 12:09 | NUR ---
PATIENTS SHERWIN CALLED FOR UPDATE PROVIDED PASSWORD. UPDATED ON STATUS POST PROCEDURE.
[2019-07-11] MEDS ORDERED: POTASSIUM CHLORIDE 80 MEQ, LIDOCAINE 1% (LOCAL ANESTH.) 6 ML in SODIUM CHL 0.9% 500 ML IV ONE (12:30)
--- NOTE | 2019-07-11 12:45 | NUR ---
INBOUND CALL CENTER REPRESENTATIVE AT BEDSIDE FOR LOWER LEG STUDY
--- NOTE | 2019-07-11 15:00 | NUR ---
PATIENTS SHERWIN CALLED, TRANSFERRED TO PORTABLE TELEPHONE AND PATIENT SPEAKING TO
[2019-07-11] MEDS: levoFLOXacin 250 MG TAB PO SCH (15:53)
--- NOTE | 2019-07-11 17:30 | NUR ---
re-assessment Per consult snf facility placement. Raiza boyer agrees. order sent to [facility] due to insurance. Per Radha they will accept if they can get [facility]. Per Radha they are working on [facility] now. Addendum: 07/11/19 at 1732 by Love Burton Amended: Links added.
--- NOTE | 2019-07-11 19:45 | NUR ---
Opening Shift Note: A&Ox3-4, periods of confusion present. Currently on 5 LO2 via oxymizer; pain level 0/10; and currently bedrest related to generalized weakness; at baseline, patient states he uses a walker/cane. Bed locked in lowest position, side rails up x3, call light within reach, and bed alarm on for patient safety. Patient is s/p cystoscopy/right ureteral stent placement/Zendejas catheter placement on 07/08/[address] Rod. Previous suprapubic catheter inserted on 06/28/19 in ER; patient removed on 07/01/19 and was replaced by ER physician that same day. Patient is also status post thoracentesis on 07/11/[address] Garrido: 450 ml removed. IVs: patient removed 22 g IV in left hand; right forearm 20 g IV leaking (removed). New IV inserted 22 g in left forearm. Skin: right elbow skin tear: optifoam; right knee abrasion TEST DESKMAN; DTI/redness to sacrum: optifoam; generalized bruising present. Patient is pending placement to SNF. VQ scan also pending to rule out PE. Patient was previously to be discharged from [facility] but code assist was called on 07/10/19 related to SOB and desaturation. Will continue to round/reposition prn.
[2019-07-11] MEDS: ALPRAZolam 0.25 MG TAB PO PRN (21:00)
[2019-07-11] MEDS: ATORVASTATIN 20 MG TAB PO SCH (21:17)
[2019-07-12] VITALS (18 sets, daily range): BP systolic 100–141; BP diastolic 47–61
--- NOTE | 2019-07-12 02:00 | NUR ---
Patient removed IV 22 g in left forearm; currently confused. New 22 g inserted in left hand.
[2019-07-12] MEDS: LEVALBUTEROL HCL 1.25 MG/3 ML NEB NEB SCH ×6 (02:25→22:18)
--- NOTE | 2019-07-12 04:00 | NUR ---
Patient bathe/linen change Patient given complete CHG bath. Skin integrity assessed for any changes. Linens and gown changed. Optifoam changed on sacrum. Patient repositioned for comfort.
[2019-07-12 04:22] LABS: Basophils # (auto) 0 10 ^3/uL (0-0.2); Eosinophils # (auto) 0 10 ^3/uL (0-0.8); Hemoglobin 8.1 g/dL (13.5-17.5); Platelet Count (auto) 79 10^3/uL (140-450); Red Cell Distribution Width 18.2 % (11.8-14.3); White Blood Cell 5.7 10^3/uL (4.4-10.8)
[2019-07-12 04:25] LABS: Basophils % (auto) 0.1 % (0.0-2.0); Hematocrit 24.4 % (41.0-53.0); Lymphocytes # (auto) 0.3 10 ^3/uL (0.4-5.4); Mean Corpuscular Hemoglobin 35.4 pg (28.0-32.0); Mean Corpuscular Hgb Conc. 33.1 g/dL (32.0-36.0); Mean Corpuscular Volume 106.9 fL (80.0-100.0); Monocytes # (auto) 0.3 10 ^3/uL (0-1.3); Monocytes % (auto) 6.1 % (0.0-12.0); Neutrophils % (auto) 87.8 % (37.0-80.0); Nucleated Red Blood Cells % 0.1 %; Red Blood Cells 2.29 10^6/uL (4.5-5.90)
[2019-07-12 04:42] LABS: Albumin 2.1 g/dL (3.4-5.0); Calcium 7.4 mg/dL (8.5-10.1); Potassium 3.6 mmol/L (3.5-5.1)
[2019-07-12 04:46] LABS: BUN/Creatinine Ratio 28.9; Bilirubin, Total 0.5 mg/dL (0.2-1.0); Total Protein 4.8 g/dL (6.4-8.2)
[2019-07-12] MEDS: HYDROCORTISONE SOD SUCC 100 MG/2ML INJ VIAL IV SCH ×3 (05:20→22:12)
[2019-07-12] MEDS: MIDODRINE HCL 10 MG TAB PO SCH ×3 (05:21→17:46)
[2019-07-12] MEDS: InsuLIN REG 1unit/0.01ml Soln (100units/ml) SC SCH ×4 (05:22→22:13)
[2019-07-12] MEDS: ACCU-CHEK COMFORT CURVE STRIP VI SCH ×4 (05:23→22:12)
--- NOTE | 2019-07-12 07:53 | NUR ---
SPOKE WITH DR HECTOR, AWARE PATIENT ON 10LPM SIMPLE MASK WITH SPO2 WNL, NEW ORDER FOR ABG/CXR.
--- NOTE | 2019-07-12 08:15 | NUR ---
PLACED ON 5LPM OXYMIZER DUE TO BREAKFAST TRAY ON BEDSIDE TABLE AND READY TO EAT AND CONSTANTLY REMOVING SIMPLE MASK. ROOM AIR PATIENT SPO2 84%. SP02 95% AND ABOVE ON 5LPM OXYMIZER. TOLERATING WELL.
--- NOTE | 2019-07-12 09:00 | NUR ---
RT AT BEDSIDE, AWARE OF ABG ORDER
[2019-07-12] MEDS: SODIUM CHLOR 0.9% PF (SALINE LOCK) 10ML VIAL/SYR IV SCH ×2 (10:10→22:00)
[2019-07-12] MEDS: ASPirin 81 mg TAB PO SCH (10:10)
[2019-07-12] MEDS: levoFLOXacin 250 MG TAB PO SCH (10:10)
[2019-07-12] MEDS: PANTOPRAZOLE 40 MG TAB PO SCH (10:10)
--- NOTE | 2019-07-12 10:30 | NUR ---
SPOKE WITH WITH ON PHONE, HAD CORRECT PASSWORD, UPDATED ON PLAN OF CARE AND ALL QUESTIONS/CONCERNS ADDRESSED.
--- NOTE | 2019-07-12 11:29 | NUR ---
ON PORTABLE PHONE SPEAKING TO NEDA VILA AFTER RN UPDATED HIM ON PLAN OF CARE AFTER VERBALIZING CORRECT PASSWORD
--- NOTE | 2019-07-12 13:38 | NUR ---
LEFT TO VQ SCAN WITH WILLARD LEAN PROCESS DEPLOYMENT CONSULTANT ON PORTABLE WAITER/WAITRESS CABIN CLASS/OXYGEN. LEFT UNIT IN STABLE CONDITION.
--- NOTE | 2019-07-12 14:00 | NUR ---
BACK FROM VQ SCAN IN STABLE CONDITION
--- NOTE | 2019-07-12 15:07 | NUR ---
PER FUR JOINER HELEN, DR Regino DUMONT GAVE ORDER TO DOWNGRADE TO [facility]
[2019-07-12] MEDS: LACTULOSE 20Gm/30ML SOLN PO PRN (15:57)
--- NOTE | 2019-07-12 16:00 | NUR ---
REQUESTING NEED FOR BEDPAN, ASSISTED COMFORTABLE PLACEMENT OF BEDPAN, 2 EXTRA SMALL ROUND FORMED BM ASSESSED AFTER ABOUT 10 MINS, CLEANSED THOROUGHLY, STATED HE NEEDS TO GO MORE AND IS "BACKED UP". LACTULOSE GIVEN ORDERED.
--- NOTE | 2019-07-12 17:57 | NUR ---
REPORT GIVEN TO PENNY KELLER, PER DR HECTOR HE WANTS TO SEE PATIENT PRIOR TO TRANSFERRING TO [facility]
--- NOTE | 2019-07-12 18:01 | NUR ---
UPDATED ON PLAN OF CARE AND PENDING TRANSFER TO [facility]
--- NOTE | 2019-07-12 18:22 | NUR ---
DR HECTOR AT BEDSIDE, ASSESSED PATIENT , OK TO GO TO [facility]. NEW ORDERS RECEIVED FOR LASIX/POTASSIUM.
[2019-07-12] MEDS ORDERED: FUROSEMIDE 20 MG/2 ML VIAL IV ONE (18:30)
[2019-07-12] MEDS ORDERED: POTASSIUM EFFERVESENT TAB 25 MEQ PO ONE (18:30)
--- NOTE | 2019-07-12 18:30 | NUR ---
TRANSFERRED TO [facility] ROOM 262 IN STABLE CONDITION
--- NOTE | 2019-07-12 18:40 | NUR ---
RECEIVED PATIENT PER BED FROM [facility] PER BED ON PORTABLE HEADING PINNER AND O2 PER OXYMIZER @ 5L. PATIENT ALERT AND ORIENTED TO SELF AND PLACE ONLY. PATIENT FOLLOWS COMMANDS AND APPROPRIATE. LUNGS WITH RHONCHI BILAT. ABD SOFT WITH BOWEL SOUNDS X 4 QUADS. RUTH DRAINING CLEAR YELLOW URINE. BP 127/58, TEMP 98.2 RESP 25, HR 90, SAO2 96% KRISTEN 66.2 KG.
--- NOTE | 2019-07-12 21:17 | NUR ---
PT CARE PT PLACED ON BED VASQUEZ FOR BM. HE IS TRYING TO DIGITALLY DISIMPACT HIMSELF. EDUCATED PT ON HYGIENE PRACTICES AND PREVIOUSLY ADMINISTERED LACTULOSE FOR CONSTIPATION. DID BED BATH AND FULL FATOU CHANGE. ASSESSED SKIN WITH NO NEW CHANGES AT THIS TIME.
[2019-07-12] MEDS: ATORVASTATIN 20 MG TAB PO SCH (22:12)
--- NOTE | 2019-07-12 22:16 | NUR ---
PT CALLED TO SPEAK WITH PT. HE STATES HE DOES NOT WANT TO TALK TO HER AT THIS TIME. LET HER KNOW HE IS IN STABLE CONDITION AND WILL CALL HER TOMORROW.
[2019-07-13] VITALS (8 sets, daily range): BP systolic 116–134; BP diastolic 44–69
[2019-07-13] MEDS: LEVALBUTEROL HCL 1.25 MG/3 ML NEB NEB SCH ×6 (02:18→22:09)
[2019-07-13 03:38] LABS: Albumin 2.2 g/dL (3.4-5.0); BUN/Creatinine Ratio 27.4; Calcium 7.5 mg/dL (8.5-10.1); Potassium 3.2 mmol/L (3.5-5.1)
[2019-07-13 03:42] LABS: Basophils # (auto) 0 10 ^3/uL (0-0.2); Bilirubin, Total 0.5 mg/dL (0.2-1.0); Eosinophils # (auto) 0 10 ^3/uL (0-0.8); Hematocrit 24.1 % (41.0-53.0); Lymphocytes # (auto) 0.4 10 ^3/uL (0.4-5.4); Lymphocytes % (auto) 6.1 % (10.0-50.0); Mean Corpuscular Hemoglobin 35.1 pg (28.0-32.0); Mean Corpuscular Hgb Conc. 33.4 g/dL (32.0-36.0); Mean Corpuscular Volume 105.3 fL (80.0-100.0); Monocytes # (auto) 0.5 10 ^3/uL (0-1.3); Monocytes % (auto) 7.2 % (0.0-12.0); Neutrophils % (auto) 86.7 % (37.0-80.0); Nucleated Red Blood Cells % 0.1 %; Platelet Count (auto) 61 10^3/uL (140-450); Red Blood Cells 2.29 10^6/uL (4.5-5.90); Red Cell Distribution Width 17.9 % (11.8-14.3); White Blood Cell 6.9 10^3/uL (4.4-10.8)
--- NOTE | 2019-07-13 05:27 | NUR ---
hospitalist paged for k of 3.2. awaiting call back.
--- NOTE | 2019-07-13 05:29 | NUR ---
hospitalist returned call, new orders received. see e-MAR.
[2019-07-13] MEDS ORDERED: POTASSIUM CHL 20 Meq TABLET PO ONE (05:30)
[2019-07-13] MEDS: HYDROCORTISONE SOD SUCC 100 MG/2ML INJ VIAL IV SCH ×3 (05:44→23:06)
[2019-07-13] MEDS: MIDODRINE HCL 10 MG TAB PO SCH ×3 (06:00→17:38)
--- NOTE | 2019-07-13 06:15 | NUR ---
PT PLACED ON BEDPAN BECAUSE HE STATES HE NEEDS TO HAVE A BM. PT CONTINUOUSLY ATTEMPTS TO DIGITALLY DISIMPACT HIMSELF. EDUCATED RIGOROUSLY ON GOOD HYGIENE PRACTICES. PT HAD TWO SMALL, FORMED STOOLS.
[2019-07-13] MEDS: ACCU-CHEK COMFORT CURVE STRIP VI SCH ×4 (06:19→22:00)
[2019-07-13] MEDS: InsuLIN REG 1unit/0.01ml Soln (100units/ml) SC SCH ×4 (06:19→23:09)
--- NOTE | 2019-07-13 06:42 | NUR ---
IV INSERTION PT RIPPED OUT 22G IV IN THE LEFT HAND. SITE BLEEDING, PRESSURE APPLIED SECURED WITH GAUZE AND COBAND. CATHETER IN TACT UPON REMOVAL. NEW 22G INSERTED TO R HAND USING CLEAN TECHNIQUE AFTER 1 ATTEMPT. PT TOLERATED WELL WITH NO COMPLAINTS OF PAIN. IV SECURED, TIMED, DATED, AND INITIALED. NETTING WRAPPED AROUND SITE TO PREVENT PT FROM REMOVING IT.
--- NOTE | 2019-07-13 08:00 | NUR ---
Opening Shift Note Assumed care of patient, awake and oriented x2, re-orientation done. No S/S of distress. SOB on exertion. Denies pain. See interventions for complete assessment. Bed locked on low position, side rails up x2, bed alarms on at all times, call mullins within reach, instructed on POC and to call for assist PRN, will continue to monitor for changes Q1hr and PRN.
[2019-07-13] MEDS: LACTULOSE 20Gm/30ML SOLN PO PRN (09:34)
[2019-07-13] MEDS: ASPirin 81 mg TAB PO SCH (09:34)
[2019-07-13] MEDS: levoFLOXacin 250 MG TAB PO SCH (09:34)
[2019-07-13] MEDS: PANTOPRAZOLE 40 MG TAB PO SCH (09:34)
[2019-07-13] MEDS: SODIUM CHLOR 0.9% PF (SALINE LOCK) 10ML VIAL/SYR IV SCH ×2 (09:34→23:11)
--- NOTE | 2019-07-13 10:00 | NUR ---
Dr Garrido at bedside, updated on patient's status. Patient seen and examined. Will carry out new orders.
--- NOTE | 2019-07-13 10:45 | NUR ---
Patient out of bed to bedside commode assisted by El AG, fall precautions in placed. No SOB or desaturation noted, HR went up to 130's.
--- NOTE | 2019-07-13 13:40 | NUR ---
pants maker Bertha at bedside to re-evaluate patient.
--- NOTE | 2019-07-13 13:48 | NUR ---
WOUND CARE NOTE: Wound care in to see patient for reevaluation of wounds that are present on admission. Patient is resting in SDU bed in Rm. 262. Patient is awake, alert hard of hearing and he follow simple direction. He's in no stated pain at this time and he appears to be in no pain using [place] Bear Faces Pain Scale. He's able to assist in turning and repositioning upon given direction. His Fahad score is 13. Skin/wound assessment done with the assistance of patient's nurse, ARIANNA Lira. His Rt lateral elbow skin tear continue to improve. Wound measuring 3.2x1.5cm, clean and dry with pink surrounding skin. Patient's Rt knee scabbed abrasion,is clean asymptomatic, left open to air. Patient's distal sacrum and lower buttocks remain intact with blanchable mild redness. His medial lower back DTI is much improved. Remaining dark red area is 0.5x0.5cm, clean and dry. Estefany care given,applied Z Guard cream to sacral, buttocks. Covered lower back wound with Opti foam gentle dressing. Patient tolerated well, repositioned patient for comfort, redistributed pressure points with pillows. New photograph of wounds are taken for reference. ARIANNA Lira at bedside. RECOMMENDATION: Continuation of all wound care orders MD prescribed, continue with skin/wound plan of care, continue monitoring by wound care while patient is hospitalized. Addendum: 07/13/19 at 1812 by Bertha Garcia RN Amended: Links added.
--- NOTE | 2019-07-13 13:48 | NUR ---
Dr Claudio at bedside, updated on patient's status. Patient seen and examined. Will carry out new orders.
--- NOTE | 2019-07-13 16:30 | NUR ---
Jose PT at bedside.
--- NOTE | 2019-07-13 17:38 | NUR ---
patient's BP 134/69, Midodrine held.
[2019-07-13] MEDS: IPRATROPIUM BROM 0.5 MG/2.5ML INH SOL NEB PRN (18:13)
--- NOTE | 2019-07-13 18:16 | NUR ---
RT NOTE PT WAS SEEN BY RT FOR HHN TX. PT TOLERATES WELL VIA MASK. NO ADVERSE REACTION NOTED. PT HAS A NOTED NONPRODUCTIVE COUGH. CONT ORDERED Addendum: 07/13/19 at 1817 by Christy Lao RT Amended: Links added.
--- NOTE | 2019-07-13 18:42 | NUR ---
Received call from patient's step son Gabino who is able to provide password. Updated on patient's status and POC, verbalized understanding. All questions and concerns addressed.
--- NOTE | 2019-07-13 21:58 | NUR ---
RT NOTE PT WAS SEEN BY RT FOR HHN TX. PT TOLERATES WELL VIA MASK. NO ADVERSE REACTION NOTED. CONT ORDERED Addendum: 07/13/19 at 2252 by Christy Lao RT Amended: Links added.
[2019-07-13] MEDS: ATORVASTATIN 20 MG TAB PO SCH (23:06)
[2019-07-14] VITALS: BP 123/54
[2019-07-14] MEDS ORDERED: THROAT LOZENGES(CEPASTAT) MT PRN
--- NOTE | 2019-07-14 | NUR ---
Late Entry Pt was very non compliant and often reaching to his anus and getting feces on his hands and spreading it all over himself and equipment. Pt was reoriented and encouraged to call for help when he had a BM. Pt was easily calling for blankets, water, hot water, and room temp changes. RN educated pt that it was just as important for him to call if he defecated and needed to be cleaned. Pt verbalized understanding and responded that he would call when the RN asked what he would do next time he had a bowel movement. Continued to monitor.
[2019-07-14] MEDS: LEVALBUTEROL HCL 1.25 MG/3 ML NEB NEB SCH ×6 (01:49→21:45)
--- NOTE | 2019-07-14 01:52 | NUR ---
RT NOTE PT WAS SEEN BY RT FOR HHN TX. PT TOLERATES WELL VIA MASK. NO ADVERSE REACTION NOTED. CONT ORDERED Addendum: 07/14/19 at 0227 by Christy Lao RT Amended: Links added.
--- NOTE | 2019-07-14 02:00 | NUR ---
Late entry: Pt pulled out IV. Mittens placed. Pt had blood everywhere. Pt cleaned, and linens changed.
[2019-07-14 03:08] LABS: Basophils # (auto) 0 10 ^3/uL (0-0.2); Eosinophils # (auto) 0 10 ^3/uL (0-0.8); Lymphocytes # (auto) 0.5 10 ^3/uL (0.4-5.4); Monocytes # (auto) 0.5 10 ^3/uL (0-1.3); Neutrophils # (auto) 5.7 10 ^3/uL (1.6-8.6); Platelet Count (auto) 55 10^3/uL (140-450)
[2019-07-14 03:09] LABS: Basophils % (auto) 0.4 % (0.0-2.0); Hematocrit 24.8 % (41.0-53.0); Hemoglobin 8.3 g/dL (13.5-17.5); Lymphocytes % (auto) 7.4 % (10.0-50.0); Mean Corpuscular Hgb Conc. 33.4 g/dL (32.0-36.0); Mean Corpuscular Volume 104.9 fL (80.0-100.0); Monocytes % (auto) 7.1 % (0.0-12.0); Neutrophils % (auto) 85.1 % (37.0-80.0); Red Blood Cells 2.36 10^6/uL (4.5-5.90); White Blood Cell 6.7 10^3/uL (4.4-10.8)
[2019-07-14 03:25] LABS: Albumin 2.3 g/dL (3.4-5.0); BUN/Creatinine Ratio 29.4; Calcium 7.6 mg/dL (8.5-10.1); Potassium 3.8 mmol/L (3.5-5.1)
[2019-07-14 03:28] LABS: Bilirubin, Total 0.5 mg/dL (0.2-1.0); Total Protein 5.1 g/dL (6.4-8.2)
[2019-07-14 04:00] VITALS: BP 133/52
--- NOTE | 2019-07-14 04:00 | NUR ---
Late entry New IV, Rt forearm 22g. Stockingette placed over site but pt continues to play with IV. Mittens placed but pt is angry about mittens.
--- NOTE | 2019-07-14 05:00 | NUR ---
Late entry Pt got mitten off and was found digging in his feces again. Full bath given and linen change. Pt VS stable.
[2019-07-14] MEDS: IPRATROPIUM BROM 0.5 MG/2.5ML INH SOL NEB PRN ×4 (06:36→21:45)
[2019-07-14] MEDS: ACCU-CHEK COMFORT CURVE STRIP VI SCH ×4 (06:38→21:48)
[2019-07-14] MEDS: InsuLIN REG 1unit/0.01ml Soln (100units/ml) SC SCH ×4 (07:00→21:50)
--- NOTE | 2019-07-14 07:00 | NUR ---
Late entry Report given to am shift. club car attendant now at bedside. Care endorsed.
--- NOTE | 2019-07-14 07:35 | NUR ---
OPENING SHIFT NOTE REPORT RECEIVED FROM FASHION CONSULTANT SELLING RN, MORNING ASSESSMENT PERFORMED AND DOCUMENTED. 88 YEAR OLD MALE, LAYING IN BED WITH EYES CLOSED, OXYGEN INCREASED TO 8 LPM DUE TO MOUTH BREATHING. HOSPITAL STAFF AT BEDSIDE FOR SAFETY. WILL CONTINUE TO MONITOR.
[2019-07-14] MEDS: MIDODRINE HCL 10 MG TAB PO SCH ×3 (08:15→17:52)
--- NOTE | 2019-07-14 09:00 | NUR ---
BM/COMFORT PATIENT ASSISTED TO BEDSIDE COMMODE, PATIENT NOTED TO BE EXTREMELY WEAK BUT WAS ABLE TO TRANSFER FROM BED TO BEDSIDE COMMODE WITH NURSE ASSISTANCE. WHILE HAVING BOWEL MOVEMENTS, PATIENT WAS ABLE TO EXPECTORATE MODERATE AMOUNT OF THICK/BROWN/MUCOUS AND ALSO ASSISTED WITH YONKERS. PATIENT THEN CLEANSED OF MODERATE SIZE FORMED BROWN STOOL AND TOLERATED WELL. COMPLETE BEDDING CHANGED BY LEIA LEMUS - PATIENT PLACED BACK IN BED AND TOLERATED WELL. WILL CONTINUE TO MONITOR.
[2019-07-14] MEDS: ASPirin 81 mg TAB PO SCH (10:00)
--- NOTE | 2019-07-14 10:26 | NUR ---
DR HECOTR AT BEDSIDE DR HECTOR UPDATED ON PATIENT'S STATUS, NEED TO INCREASE OXYGEN CONSUMPTION TO 8 LITERS VIA OXYMIZER AND DOWNGRADE ORDER RECEIVED FROM DR Arabella DUMONT. DR HECTOR ALSO NOTIFIED OF SPUTUM EXPECTORATED BY PATIENT EARLIER MODERATE/DARK/THICK/BROWN. DR HECTOR STATED HE PREFERRED PATIENT TO BE ON 5 LITERS OR LESS OF OXYGEN VIA OXYMIZER BEFORE DOWNGRADING TO TELE, PATIENT'S OXYGEN DECREASED TO 5 LITERS AND SATURATIONS ABOVE 95% - DR HECTOR WOUND LIKE OXYGEN SATURATIONS TO BE ABOVE 92%. ORDERS WILL BE CARRIED OUT AND SAFETY/COMFORT MONITORING WILL CONTINUE DURING SHIFT. HOSPITAL STAFF REMAINS AT BEDSIDE FOR SAFETY.
[2019-07-14] MEDS ORDERED: FUROSEMIDE 40 MG/4 ML VIAL IV ONE (10:30)
[2019-07-14] MEDS: HYDROCORTISONE SOD SUCC 100 MG/2ML INJ VIAL IV SCH ×2 (11:33→21:47)
[2019-07-14] MEDS: SODIUM CHLOR 0.9% PF (SALINE LOCK) 10ML VIAL/SYR IV SCH ×2 (11:33→21:47)
[2019-07-14] MEDS: levoFLOXacin 250 MG TAB PO SCH (11:34)
[2019-07-14] MEDS: PANTOPRAZOLE 40 MG TAB PO SCH (11:34)
--- NOTE | 2019-07-14 13:47 | NUR ---
REPORT CALLED TO RECEIVING ARIANNA FERGUSON, PATIENT WILL BE PREPARED FOR TRANSFER TO ROOM [facility]. Addendum: 07/14/19 at 1349 by Evelin Bird RN MESSAGE LEFT FOR PATIENT'S SPOUSE SHERWIN TO RETURN CALL TO NOTIFY OF TRANSFER.
--- NOTE | 2019-07-14 14:00 | NUR ---
ICU patient trans to floor PARTHA VAZ transferred to room 277a via gurney on manager cardiac and portable 02. All patient medications and personal belongings transferred with patient to receiving floor. Patient alert and oriented x3, no distress noted, respirations even and unlabored. Patient accompanied by hospital staff. Patient's spouse Raiza notified.
--- NOTE | 2019-07-14 14:10 | NUR ---
LAUREN TRANSFER ASSUMED CARE OF PATIENT AWAKE AND ALERT. NO S/S OF DISTRESS NOTED. PATIENT CONNECTED TO TELE #74 RUNNING SINUS RHYTHM IN THE 60'S. PATIENT IS ON 4L OXYMIZER WITH AN OXYGEN SATURATION OF 95%. SUCTION SET UP AT BEDSIDE. PATIENT UPDATED ON POC FOR THE DAY AND ORIENTED TO NEW SURROUNDING. BED IS IN LOWEST, LOCKED POSITION WITH SIDE RAILS UP X2 AND CALL LIGHT WITHIN REACH. SITTER IS AT BEDSIDE FOR SAFETY. WILL CONTINUE TO MONITOR Q1H AND PRN.
[2019-07-14] MEDS: ACETYLCYSTEINE 20%(200MG/ML) SOL 4ML NEB SCH ×2 (14:21→21:45)
--- NOTE | 2019-07-14 19:20 | NUR ---
Opening Shift Note Received report from roberto Waters RN. Assumed care of patient resting in bed breathing with mouth wide open, easily awaken. Sitter at bedside. On 4L Oxymizer saturating at 93%. No S/S of distress/SOB or pain. Instructed on POC and to call for assist PRN, will continue to monitor for changes Q1hr and PRN.
[2019-07-14] MEDS: ATORVASTATIN 20 MG TAB PO SCH (21:47)
[2019-07-14 22:00] VITALS: BP 122/53
--- NOTE | 2019-07-15 | NUR ---
ROUNDS PATIENT IS RESTING IN BED WITH EYES CLOSED, NO DISTRESS NOTED, ON 4L OXYMIZER SATURATING AT 94%. WILL MONITOR
[2019-07-15] MEDS: LEVALBUTEROL HCL 1.25 MG/3 ML NEB NEB SCH ×6 (01:38→22:08)
[2019-07-15] MEDS: ACETYLCYSTEINE 20%(200MG/ML) SOL 4ML NEB SCH ×3 (01:38→22:09)
--- NOTE | 2019-07-15 01:43 | NUR ---
RT NOTE PT WAS MARGARITA BY RT FOR HHN AND CPT TX. PT TOLERATES WELL VIA MASK AND MANUAL PERCUSSION. PT WAS ON 4L OXYMIZER WITH SATS AT 98%. POST TX, FIO2 DECREASED TO 3L OXYMIZER. CONT ORDERED Addendum: 07/15/19 at 0206 by Christy Lao RT Amended: Links added.
--- NOTE | 2019-07-15 05:00 | NUR ---
IV removal IV PULLED OUT BY PATIENT WHILE SITTER IS BUSY WITH PATIENT IS B BED. IV CATHETER FULLY INTNACT AND PRESSURE DRESSING APPLIED TO SITE.
--- NOTE | 2019-07-15 05:00 | NUR ---
IV insertion IV access obtained, via clean sterile technique by inserting 22 gauge catheter at Left wrist after first attempt. IV secured properly. No trauma to site. Patient tolerated procedure well.
[2019-07-15 06:00] VITALS: BP 114/40
[2019-07-15] MEDS: MIDODRINE HCL 10 MG TAB PO SCH ×3 (06:15→18:27)
[2019-07-15] MEDS: ACCU-CHEK COMFORT CURVE STRIP VI SCH ×4 (06:15→21:50)
[2019-07-15] MEDS: InsuLIN REG 1unit/0.01ml Soln (100units/ml) SC SCH ×5 (06:55→22:19)
[2019-07-15 09:00] VITALS: BP 94/55
[2019-07-15] MEDS: levoFLOXacin 250 MG TAB PO SCH (09:52)
[2019-07-15] MEDS: PANTOPRAZOLE 40 MG TAB PO SCH (09:52)
[2019-07-15] MEDS: ASPirin 81 mg TAB PO SCH (09:52)
[2019-07-15] MEDS: HYDROCORTISONE SOD SUCC 100 MG/2ML INJ VIAL IV SCH ×2 (09:53→21:48)
[2019-07-15] MEDS: SODIUM CHLOR 0.9% PF (SALINE LOCK) 10ML VIAL/SYR IV SCH ×2 (09:53→21:50)
[2019-07-15 13:00] VITALS: BP 101/54
--- NOTE | 2019-07-15 14:31 | NUR ---
Nutrition Follow-up Wt.: 62.5 kg Pt sleeping with no family by bedside. pt with PNA and sepsis due to UTI. pt is currently on regular diet with inadequate PO of 75% x 5 per RN doc Est Energy needs: 6797-8662 kcals (30-35 kcal/kgBW) d/t acute Renal failure, Est Protein needs: 36-58 gms/day (0.5-0.8 gm/kgBW) d/t acute Renal failure. Will continue to monitor and reassess prn. Labs: BUN 37 H, CA 7.6 L, ALB 2.3 L, BUN 37 H GI: pt had 1 BM 6/6 per RN doc Skin: Pt had 15 mod risk pt`s with DTI per RN doc. refer to WC notes for details PES: 1) Possibly resolving: Inadequate oral intake r/t pt with poor appetite aeb pt PO intake of 35% of meal 2) Altered nutrition related lab values current medical condition aeb elev RFTs, low GFR (Stg 4), hyperglycemia, severe hypoalbuminemia Recommendations: 1) Consider CCHO 60 gm as pt with elev blood glu. 2) If pt appetite remains poor (<50% PO intake) consider supplemental nutrition support with glucerna 1 carton bid. 3) Continue current plan of care. 4) F/u mod 3-5 days
--- NOTE | 2019-07-15 16:50 | NUR ---
IV removal IV DC'd with clean sterile technique, catheter fully intact. Pressure dressing applied to site. Patient tolerated well. NOTE:
[2019-07-15 17:00] VITALS: BP 113/53
--- NOTE | 2019-07-15 17:07 | NUR ---
IV insertion IV access obtained, via clean sterile technique by inserting 22 gauge catheter at after attempt(s). IV secured properly. No trauma to site. Patient tolerated well. NOTE:
--- NOTE | 2019-07-15 18:17 | NUR ---
Respiratory note: Medneb tx administered, CPT not done, pt not tolerating at this time. No s/s of respiratory distress noted.
--- NOTE | 2019-07-15 19:50 | NUR ---
RECEIVED PATIENT FROM DAY SHIFT RN. PATIENT RESTING IN BED. NO S/S OF DISTRESS NOTED. DENIED PAIN FOR NOW. REORIENTED PATIENT ON TIME AND PLACE, PATIENT VERBALIZED UNDERSTANDING. RE-ORIENT PATIENT NEEDED. DRESSINGS ON SACRAL AND RIGHT ELBOW C/D/I. REPOSITIONED PATIENT, PATIENT TOLERATED WELL. RUTH CATH IN PLACE DRAINING TO GRAVITY. POC INSTRUCTED AND ENCOURAGED PATIENT TO CALL FOR GLOBAL CATEGORY MANAGER IF NEEDED. BED IN LOWEST POSITION WITH SIDE RAILS UP X 2. CALL MOHR WITHIN REACH. ALARM ON. SITTER AT BEDSIDE FOR SAFETY. CONTINUE TO MONITOR FOR CHANGES Q1H AND PRN.
[2019-07-15 21:18] VITALS: BP 113/53
[2019-07-15 21:35] VITALS: BP 130/66
[2019-07-15] MEDS: ATORVASTATIN 20 MG TAB PO SCH (21:48)
[2019-07-15] MEDS: ALPRAZolam 0.25 MG TAB PO PRN (21:49)
[2019-07-15] MEDS: IPRATROPIUM BROM 0.5 MG/2.5ML INH SOL NEB PRN (22:08)
--- NOTE | 2019-07-15 22:13 | NUR ---
Respiratory note: AT BEDSIDE FOR MED GAYLA NAVARRO.
--- NOTE | 2019-07-15 22:20 | NUR ---
ACCU-CHECK, BS 274. INSULIN GIVEN ORDERED. CONTINUE TO MONITOR.
--- NOTE | 2019-07-15 22:55 | NUR ---
PATIENT HARD TO BREATH, RT PAGED. CHECKED PATIENT, PATIENT OFF OXYGEN. PUT PATIENT BACK TO 4L/OXYMIZER. O2 SAT 94%. CONTINUE TO MONITOR
--- NOTE | 2019-07-15 22:59 | NUR ---
RT AT BEDSIDE
[2019-07-16] MEDS: LEVALBUTEROL HCL 1.25 MG/3 ML NEB NEB SCH ×6 (02:18→22:27)
--- NOTE | 2019-07-16 02:21 | NUR ---
PATIENT SLEEPING. NO S/S OF DISTRESS NOTED. SITTER AT BEDSIDE FOR SAFETY. CONTINUE TO MONITOR.
--- NOTE | 2019-07-16 02:23 | NUR ---
Respiratory note: AT BEDSIDE FOR MED GAYLA NAVARRO.
[2019-07-16 06:05] VITALS: BP 118/46
[2019-07-16] MEDS: MIDODRINE HCL 10 MG TAB PO SCH ×3 (06:12→17:15)
[2019-07-16] MEDS: ACCU-CHEK COMFORT CURVE STRIP VI SCH ×4 (06:13→22:12)
[2019-07-16] MEDS: ACETYLCYSTEINE 20%(200MG/ML) SOL 4ML NEB SCH ×3 (06:27→22:27)
[2019-07-16] MEDS: InsuLIN REG 1unit/0.01ml Soln (100units/ml) SC SCH ×4 (06:32→22:26)
--- NOTE | 2019-07-16 06:37 | NUR ---
ACCU-CHECK, BS 181. INSULIN GIVEN ORDERED. CONTINUE TO MONITOR. Signed: 07/16/19 at 06 by PARTH NOLAN <Co-Signature Required> Co-Signed: 07/16/19 at 637 by Keenan Mora RN
--- NOTE | 2019-07-16 06:38 | NUR ---
Respiratory note: PATIENT REFUSING CPT WITH 0600 MED-NEB TX. RN GIBRAN AT BEDSIDE AND AWARE OF PATIENTS REFUSAL.
--- NOTE | 2019-07-16 08:26 | NUR ---
Opening Note Assumed pt care from NOC RN. Pt is a/ox2-3; responds to name and responds to questions, but inappropriate talk at times and periods of confusion. Sitter is present in room. Pt is currently sitting upright in bed with HOB elevated to high fowlers. Pt is currently on 2L via oxymizer. Zendejas catheter in place, draining to gravity. Discussed POC with pt; pt verbalized understanding. Safety measures maintained with call light within reach, bed in lowest position and side rails up. Will continue to monitor.
--- NOTE | 2019-07-16 08:54 | NUR ---
Pt Self Removed IV Pt self removed IV. Catheter was removed fully intact. Site is asymptomatic. Dressing applied to site. Will attempt to place new IV. Will continue to monitor.
[2019-07-16 09:00] VITALS: BP 113/52
[2019-07-16] MEDS: HYDROCORTISONE SOD SUCC 100 MG/2ML INJ VIAL IV SCH ×2 (09:21→22:09)
[2019-07-16] MEDS: levoFLOXacin 250 MG TAB PO SCH (09:21)
[2019-07-16] MEDS: ASPirin 81 mg TAB PO SCH (09:21)
[2019-07-16] MEDS: SODIUM CHLOR 0.9% PF (SALINE LOCK) 10ML VIAL/SYR IV SCH ×2 (09:22→22:10)
[2019-07-16] MEDS: PANTOPRAZOLE 40 MG TAB PO SCH (09:22)
--- NOTE | 2019-07-16 09:29 | NUR ---
IV Insertion 22G to pt's R hand inserted. 2 attempts made. Pt tolerated insertion well. Clean/sterile technique used. Will continue to monitor.
--- NOTE | 2019-07-16 10:10 | NUR ---
Respiratory note: PATIENT CONTINUES TO REFUSE CPT. WILL CONTACT DR. HECTOR TO SEE IF ORDER CAN BE D/C'd DUE TO REFUSAL OF THERAPY.
--- NOTE | 2019-07-16 10:28 | NUR ---
Dr Ruth at Bedside MD to see pt. Plans to d/c pt to SNF. MD requests that if not arranged today by 1500 to call him with update. Will implement and continue to monitor.
[2019-07-16 13:00] VITALS: BP 107/53
--- NOTE | 2019-07-16 13:29 | NUR ---
D/C WOUND PHOTOS TAKEN FOR REFERENCE
--- NOTE | 2019-07-16 13:45 | NUR ---
re-assessment Per Radha at [facility] she still has no received an BARB for patient. MD order has been re-directed to [facility] and [facility]. Per Queenie at [facility] she can accept patient in the morning to room 118 bed a and the accepting MD is Dr Billingsley. I called and left a message for patients to return my call. I called and spoke with patients daughter and she referred me to Gabino patients son and POA. I have left a message for Gabino to return my call also. Waiting for call back from and son now. Addendum: 07/16/19 at 1348 by Love MANUEL Amended: Links added.
--- NOTE | 2019-07-16 14:38 | NUR ---
I called [place] Commercial Green Retrofit Architect Debbie [phone] and left message asking if patient has transportation benefit and if they would be willing to do an BARB with [facility] (they are only contracted with [facility]).
--- NOTE | 2019-07-16 15:04 | NUR ---
Spoke to Dr Ruth Spoke to about current transfer status. MD aware that we are still pending acceptance to SNF. Will continue to monitor.
[2019-07-16 16:41] VITALS: BP 126/60
--- NOTE | 2019-07-16 17:30 | NUR ---
re-assessment Spoke with patients mely Lloyd. Per Gabino he agrees to SNF placement at [facility]. I informed Gabinotegan Navarrete top case assembler is working on transport benefit now. Gabino verbalized understanding and agreed to discharge plan to [facility]. Addendum: 07/16/19 at 1732 by Love MANUEL Amended: Links added.
[2019-07-16] MEDS: IPRATROPIUM BROM 0.5 MG/2.5ML INH SOL NEB PRN (18:53)
--- NOTE | 2019-07-16 18:59 | NUR ---
Respiratory note: AT BEDSIDE FOR MED GAYLA NAVARRO.
--- NOTE | 2019-07-16 19:15 | NUR ---
RECEIVED PATIENT FROM DAY SHIFT RN. PATIENT RESTING IN BED. NO S/S OF DISTRESS NOTED. DENIED PAIN FOR NOW. REORIENTED PATIENT ON TIME AND PLACE, PATIENT VERBALIZED UNDERSTANDING. RE-ORIENT PATIENT NEEDED. DRESSINGS ON SACRAL AND RIGHT ELBOW C/D/I. REPOSITIONED PATIENT, PATIENT TOLERATED WELL. RUTH CATH IN PLACE DRAINING TO GRAVITY. POC INSTRUCTED AND ENCOURAGED PATIENT TO CALL FOR SENIOR WATER/WASTEWATER ENGINEER IF NEEDED. BED IN LOWEST POSITION WITH SIDE RAILS UP X 2. CALL MOHR WITHIN REACH. ALARM ON. SITTER AT BEDSIDE FOR SAFETY. CONTINUE TO MONITOR FOR CHANGES Q1H AND PRN.
[2019-07-16 21:54] VITALS: BP 114/48
[2019-07-16] MEDS: ATORVASTATIN 20 MG TAB PO SCH (22:09)
--- NOTE | 2019-07-16 22:33 | NUR ---
ACCU-CHECK, BS 325. INSULIN GIVEN ORDERED. CONTINUE TO MONITOR.
[2019-07-17] MEDS: LEVALBUTEROL HCL 1.25 MG/3 ML NEB NEB SCH ×6 (02:54→22:30)
--- NOTE | 2019-07-17 02:59 | NUR ---
Respiratory note: at bedside for med mary brush.
[2019-07-17] MEDS: IPRATROPIUM BROM 0.5 MG/2.5ML INH SOL NEB PRN (03:04)
--- NOTE | 2019-07-17 03:30 | NUR ---
Paged to bedside, LEIA Burroughs at bedside communicates pt is refusing to wear Oxymizer now. Pt stating "it hurts to wear". pt is known to desaturate quickly. Nose mucosa is noted to be reddened and slightly bleeding. Bubble humidifier placed with 6Lpm NC, pox 92-94% pt appears more comfortable and went back to sleep. ARIANNA Lobato communicated on changes.
--- NOTE | 2019-07-17 03:34 | NUR ---
RT AT BEDSIDE AND CHANGED PATIENT TO 6L/NC WITH HUMIDIFIER. O2 SAT 94%. CONTINUE TO MONITOR.
--- NOTE | 2019-07-17 05:02 | NUR ---
TOTAL LINEN AND PATIENT GOWN CHANGED. PATIENT TOLERATED WELL. NEW OPTIFOAM APPLIED. CONTINUE TO MONITOR.
[2019-07-17 05:06] VITALS: BP 120/57
[2019-07-17] MEDS: MIDODRINE HCL 10 MG TAB PO SCH ×3 (06:24→17:25)
[2019-07-17] MEDS: ACCU-CHEK COMFORT CURVE STRIP VI SCH ×4 (06:24→22:00)
[2019-07-17] MEDS: InsuLIN REG 1unit/0.01ml Soln (100units/ml) SC SCH ×4 (06:26→22:00)
--- NOTE | 2019-07-17 06:26 | NUR ---
ACCU-CHECK, BS 242. INSULIN GIVEN ORDERED. CONTINUE TO MONITOR.
--- NOTE | 2019-07-17 07:22 | NUR ---
Opening Note Assumed pt care fro MONTSERRAT RN. Pt is a/ox2-3; with mild periods of confusion. Pt is currently sitting upright in bed on 6L via NC with no s/s of distress or SOB. Sitter is present in room. Zendejas is present; draining to gravity and free of kinks. Discussed POC with pt and pending d/c. Safety measures maintained with call light within reach, bed in lowest position and side rails up. Will continue to monitor.
[2019-07-17] MEDS: ACETYLCYSTEINE 20%(200MG/ML) SOL 4ML NEB SCH ×2 (07:38→13:50)
[2019-07-17] MEDS: levoFLOXacin 250 MG TAB PO SCH (08:46)
[2019-07-17] MEDS: SODIUM CHLOR 0.9% PF (SALINE LOCK) 10ML VIAL/SYR IV SCH (08:46)
[2019-07-17] MEDS: HYDROCORTISONE SOD SUCC 100 MG/2ML INJ VIAL IV SCH ×2 (08:46→23:10)
[2019-07-17] MEDS: PANTOPRAZOLE 40 MG TAB PO SCH (08:46)
[2019-07-17] MEDS: ASPirin 81 mg TAB PO SCH (08:46)
[2019-07-17 09:00] VITALS: BP 132/79
--- NOTE | 2019-07-17 11:25 | NUR ---
Dr Ruth at Station Update on pt's transfer status. requested that I contact case management for update. Left message with Rosalba in case management for update. Will continue to monitor.
[2019-07-17 13:00] VITALS: BP 129/74
--- NOTE | 2019-07-17 13:41 | NUR ---
Left Messaged with Payment Poster Left message with Love Burton in regards to SNF status. Will continue to monitor. Addendum: 07/17/19 at 1450 by NIKA PATTERSON RN RN Love with SS called back. She stated that pt has been accepted to [facility]. Transportation needs to be set up. She is requesting that I contact pt's son, Gabino for possibility of paying for transportation. GabinoJESSY number provided [phone]. Addendum: 07/17/19 at 1500 by NIKA PATTERSON RN RN Spoke with pt's son Gabino, . Directed the call to Love with [employer] to set up details of transport.
--- NOTE | 2019-07-17 15:08 | NUR ---
I called [employer] Marketing Support Assistant Debbie [phone] to ask if patient has transportation benefit to SNF. Per Debbie I need to call [employer] member services [phone]. I called member services and spoke with Sallie, she said patient does have transportation benefit through [employer]-she provided me with phone number [phone]. I called provided number and spoke with Frieda, she said that they just provide services for [facility] members. She referred me to call [phone]-I was told that they could not bring up patient in their system. I called different number for [employer] [phone] and spoke with Fitz, she could not bring up patient in their system-she said she would give me a call back. I received a message from Fitz telling me to call [phone]. I called provided number and was told that they are not able to bring up patient in their system as having the transportation benefit. I called [place] Marketing Support Assistant Debbie Curtis and left message asking for authorization number for [facility] to transport to SNF.
[2019-07-17 16:52] VITALS: BP 138/73
--- NOTE | 2019-07-17 19:13 | NUR ---
RT NOTE PT WAS SEEN BY RT FOR HHN TX. PT TOLERATES WELL VIA MASK. NO ADVERSE REACTION NOTED. CONT ORDERED Addendum: 07/17/19 at 1914 by Christy Lao RT Amended: Links added.
[2019-07-17 21:16] VITALS: BP 127/57
--- NOTE | 2019-07-17 22:28 | NUR ---
RT NOTE PT WAS SEEN BY RT FOR HHN TX. PT TOLERATES WELL VIA MASK. NO ADVERSE REACTION NOTED. CONT ORDERED Addendum: 07/17/19 at 2328 by Christy Lao RT Amended: Links added.
[2019-07-17] MEDS: ATORVASTATIN 20 MG TAB PO SCH (23:09)
[2019-07-18] VITALS (7 sets, daily range): BP systolic 105–127; BP diastolic 45–89
[2019-07-18] MEDS: LEVALBUTEROL HCL 1.25 MG/3 ML NEB NEB SCH ×5 (02:23→18:47)
--- NOTE | 2019-07-18 02:39 | NUR ---
RT NOTE PT WAS SEEN BY RT FOR HHN TX. PT TOLERATES WELL VIA MASK. NO ADVERSE REACTION NOTED. CONT ORDERED Addendum: 07/18/19 at 0254 by Christy Lao RT Amended: Links added.
--- NOTE | 2019-07-18 03:26 | NUR ---
SITTER AT BEDSIDE;PT REMAINS PLEASANTLY CONFUSED. WILL CONTINUE TO MONITOR.
[2019-07-18] MEDS: MIDODRINE HCL 10 MG TAB PO SCH ×3 (06:20→18:23)
[2019-07-18] MEDS: SODIUM CHLOR 0.9% PF (SALINE LOCK) 10ML VIAL/SYR IV SCH ×2 (06:21→10:05)
[2019-07-18] MEDS: InsuLIN REG 1unit/0.01ml Soln (100units/ml) SC SCH ×3 (06:49→17:10)
[2019-07-18] MEDS: ACCU-CHEK COMFORT CURVE STRIP VI SCH ×3 (06:50→17:10)
--- NOTE | 2019-07-18 07:11 | NUR ---
PT TURNED SELF THROUGHOUT THE NIGHT WITHOUT ASSISTANCE-BUT WAS PULLED UP Q2 HOURS;DENIES PAIN;NO DISTRESS;DAYSHIFT SITTER AT BEDSIDE.
--- NOTE | 2019-07-18 08:00 | NUR ---
OPENING SHIFT NOTE: PATIENT RESTING IN BED, A/OX4. ATTEMPTING TO CALL AND SPEAK WITH PATIENT. PATIENT SHAKING HEAD NO, HE DOES NOT WISH TO SPEAK WITH AT THIS TIME. FALL PRECAUTIONS IN PLACE, CALL LIGHT WITHIN REACH, SITTER AT BEDSIDE FOR ADDITIONAL SAFETY. WILL CONTINUE TO MONITOR.
--- NOTE | 2019-07-18 09:14 | NUR ---
I called [place] Music Therapy Teacher Debbei Curtis [phone] and left message asking for authorization for [facility] as well as for [facility] transportation.
[2019-07-18] MEDS: HYDROCORTISONE SOD SUCC 100 MG/2ML INJ VIAL IV SCH (10:05)
[2019-07-18] MEDS: PANTOPRAZOLE 40 MG TAB PO SCH (10:06)
[2019-07-18] MEDS: levoFLOXacin 250 MG TAB PO SCH (10:06)
[2019-07-18] MEDS: ASPirin 81 mg TAB PO SCH (10:06)
--- NOTE | 2019-07-18 11:40 | NUR ---
MD TIM VALENZUELA.
--- NOTE | 2019-07-18 11:45 | NUR ---
MD HECTOR ROUNDING ORDERS RECEIVED.
--- NOTE | 2019-07-18 11:47 | NUR ---
[facility] CASE MANAGEMENT: THIS RN SPOKE WITH SANDY IN CASE MANAGEMENT, PENDING AUTHORIZATION FOR TRANSPORTATION AND BED AT THIS TIME. WILL CONTINUE TO MONITOR.
--- NOTE | 2019-07-18 13:42 | NUR ---
I called [place] Door Opener Debbie Curtis [phone] and asked for authorization for [facility] to transport to SNF. Per Debibe she can not give authorization for [facility] because she does not know if patient has that benefit-and if they don't they will get billed for it.
[2019-07-18] MEDS ORDERED: ACETYLCYSTEINE 10 %(100MG/ML) SOL 4ML NEB SCH (14:00)
--- NOTE | 2019-07-18 14:35 | NUR ---
RT AT BEDSIDE, PATIENT NOTED TO HAVE PRODUCTIVE COUGH AT THIS TIME. CURRENTLY RECEIVING BREATHING TREATMENT.
--- NOTE | 2019-07-18 15:24 | NUR ---
Nutrition Follow-up Wt.: 62.5 kg pt with PNA and sepsis due to UTI. Per social media executive pt is awaiting transfer to SNF. pt is currently on regular diet with adequate PO intake avg of 93% x 3 days per RN doc Est Energy needs: 3582-1511 kcals (30-35 kcal/kgBW) d/t acute Renal failure, Est Protein needs: 36-58 gms/day (0.5-0.8 gm/kgBW) d/t acute Renal failure. Will continue to monitor and reassess prn. Labs: BUN 37 H, CA 7.6 L, ALB 2.3 L, GLUC 242H GI: pt had 3 BM 6/7 per RN doc Skin: Pt had 17 mod risk pt`s with DTI per RN doc. refer to WC notes for details PES: 1) Resolved: Pt with 93% po intake avg x 3 days : Inadequate oral intake r/t pt with poor appetite aeb pt PO intake of 35% of meal 2) Altered nutrition related lab values current medical condition aeb elev RFTs, low GFR (Stg 4), hyperglycemia, severe hypoalbuminemia Recommendations: 1) Consider CCHO 60 gm as pt with elev blood glu. 2) Continue current plan of care. 3) F/u mod 3-5 days
--- NOTE | 2019-07-18 17:07 | NUR ---
RE-ASSESSMENT Per Queenie at [facility], she has auth for patients stay. Patient will now go to [facility] and Dr Hyde is the accepting MD. Patient has no transport benefit per Rosalba showcase trimmer. Per Leif at [facility] he will transport patient to [facility] for 380.00 gurney. Patients son Gabino can pay half. Per Ramonita 2 admin will pay the other half. I have left a message for [facility] to return my call to set up transport. Waiting plc controls engineer back now. Addendum: 07/18/19 at 1710 by Love MANUEL Amended: Links added.
--- NOTE | 2019-07-18 17:10 | NUR ---
re-assessment Transportation has been set up for 830pm by [facility] going to [place] Dr Hyde is the accepting MD. Call report to [phone]. Gabino obone has been notified and agreed to pay 190.00 of transport bill. DVRegino to pay 190.00 of transport bill. Leif from [facility] agreed to payment arrangements. Rosanna KELLER has been notified. Addendum: 07/18/19 at 1720 by Love MANUEL Amended: Links added.
--- NOTE | 2019-07-18 17:33 | NUR ---
BANDAR AND BANDAR'S SISTER WHO IS AN RN, DEVORAH, WERE MADE AWARE OF TRANSFER.
--- NOTE | 2019-07-18 18:25 | NUR ---
MRSA SWAB SENT TO LAB AND WOUND CARE PHOTOS OBTAINED.
--- NOTE | 2019-07-18 19:27 | NUR ---
CARE ENDORSED TO BRIAN KELLER.
--- NOTE | 2019-07-18 20:34 | NUR ---
Pt dc'd via transport team in stable cond at this time. IV 22g still cdi and tele box #[id number] removed and sent back to tele room.
== END 2019-07-18 20:39 | DRG 853 ==
LOC: ER 15:07 → TELE 15:08 → ICU WEST 19:13 → TELE-CENTR 07-03 11:01 → ICU WEST 07-10 20:14 → DOU IN ICU 07-12 17:08 → TELE-WESTW 07-14 14:52
PROVIDERS: ADMIT Internal Medicine; ATTEND Family Medicine
PROC: 02HV33Z Insertion of Infusion Device into Superior Vena Cava, Percutaneous Approach (ICD-10-PCS; 2019-06-30)
PROC: 30233N1 Transfusion of Nonautologous Red Blood Cells into Peripheral Vein, Percutaneous Approach (ICD-10-PCS; 2019-07-01)
PROC: 0T9B30Z Drainage of Bladder with Drainage Device, Percutaneous Approach (ICD-10-PCS; 2019-07-01)
PROC: 0TF6XZZ Fragmentation in Right Ureter, External Approach (ICD-10-PCS; 2019-07-08)
PROC: 0T768DZ Dilation of Right Ureter with Intraluminal Device, Via Natural or Artificial Opening Endoscopic (ICD-10-PCS; principal; 2019-07-08 12:44)
PROC: 5A09357 Assistance with Respiratory Ventilation, Less than 24 Consecutive Hours, Continuous Positive Airway Pressure (ICD-10-PCS; 2019-07-10)
PROC: 0W993ZZ Drainage of Right Pleural Cavity, Percutaneous Approach (ICD-10-PCS; 2019-07-11)
PROC: 5A09357 Assistance with Respiratory Ventilation, Less than 24 Consecutive Hours, Continuous Positive Airway Pressure (ICD-10-PCS; 2019-07-11)
DX: A41.59 Other Gram-negative sepsis (principal); J18.9 Pneumonia, unspecified organism; R65.21 Severe sepsis with septic shock; G93.41 Metabolic encephalopathy; J96.21 Acute and chronic respiratory failure with hypoxia; E43 Unspecified severe protein-calorie malnutrition; I13.0 Hypertensive heart and chronic kidney disease with heart failure and stage 1 through stage 4 chronic kidney disease, or unspecified chronic kidney disease; E87.1 Hypo-osmolality and hyponatremia; N13.6 Pyonephrosis; N17.9 Acute kidney failure, unspecified; J98.11 Atelectasis; J90 Pleural effusion, not elsewhere classified; J81.1 Chronic pulmonary edema; N18.4 Chronic kidney disease, stage 4 (severe); I42.9 Cardiomyopathy, unspecified; A41.4 Sepsis due to anaerobes; R62.7 Adult failure to thrive; D64.9 Anemia, unspecified; E86.0 Dehydration; E87.5 Hyperkalemia; N35.919 Unspecified urethral stricture, male, unspecified site; N36.8 Other specified disorders of urethra; E11.40 Type 2 diabetes mellitus with diabetic neuropathy, unspecified; N40.1 Benign prostatic hyperplasia with lower urinary tract symptoms; Z68.21 Body mass index [BMI] 21.0-21.9, adult; E11.22 Type 2 diabetes mellitus with diabetic chronic kidney disease; E78.5 Hyperlipidemia, unspecified; F41.9 Anxiety disorder, unspecified; I50.9 Heart failure, unspecified; S51.011A Laceration without foreign body of right elbow, initial encounter; Z20.828 Contact with and (suspected) exposure to other viral communicable diseases; S80.211A Abrasion, right knee, initial encounter; S41.112A Laceration without foreign body of left upper arm, initial encounter; A49.02 Methicillin resistant Staphylococcus aureus infection, unspecified site; K80.20 Calculus of gallbladder without cholecystitis without obstruction; J43.9 Emphysema, unspecified; X58.XXXA Exposure to other specified factors, initial encounter; Z79.02 Long term (current) use of antithrombotics/antiplatelets; Z79.82 Long term (current) use of aspirin; Z79.84 Long term (current) use of oral hypoglycemic drugs; Z79.51 Long term (current) use of inhaled steroids; Z83.3 Family history of diabetes mellitus; Z86.73 Personal history of transient ischemic attack (TIA), and cerebral infarction without residual deficits; Z87.442 Personal history of urinary calculi; Z90.79 Acquired absence of other genital organ(s); Z79.899 Other long term (current) drug therapy; Y93.89 Activity, other specified; Y99.8 Other external cause status; Y92.89 Other specified places as the place of occurrence of the external cause
CPT/HCPCS: 32555; 36415; 36556; 36569; 36600; 51702; 70450; 71045; 73070; 74018; 74176; 76700; 76942; 78582; 80048; 80053; 81001; 82150; 82607; 82746; 82805; 82962; 83036; 83605; 83615; 83690; 83880; 83986; 84484; 85007; 85025; 85027; 85379; 85610; 85730; 86850; 86900; 86901; 86920; 87040; 87070; 87077; 87081; 87086; 87088; 87186; 87205; 87804; 87880; 89051; 93005; 93306; 93886; 93970; 94640; 94660; 94667; 94668; 95819; 97110; 97116; 97530; 99291; G0378; J0610; J0690; J0696; J1815; J1956; J2001; J2405